=== PATIENT | male | born 1960 | race Caucasian/White ===

== ENCOUNTER 2016-10-23 02:30 | Inpatient (IN) | payer OTHER ==
[~2016-10-23] VITALS: Ht 172.7 cm; Wt 115.4 kg
[~2016-10-23 02:30] MED LIST: ALBUTEROL SULF8.5 GM IH; CARTIA XT120 MG PO; CEFDINIR300 MG PO; DAILY VALUE1 EACH PO; DELTASONE20 M1 PO; DILAUDID8 MG PO; DOCUSATE SODIU100 MG PO; DOK PLUS TABLE1 EACH PO; ENSURE LIQUID237 ML PO; FAMOTIDINE20 MG PO; FOLIC ACID1 MG PO; FUROSEMIDE40 MG PO; HEPARIN SO5000 UNITS SC; LACTULOSE10 GM/151 PO; LEVAQUIN750 MG PO; LIBRIUM25 MG PO; MAGNESIUM CITR296 M1 PO; METHADONE10 MG PO; MICROZIDE12.5 M1 PO; NEURONTIN600 MG PO; NEURONTIN800 MG PO; NICOTINE PATCH1 EAC2 TD; PREDNISONE20 MG PO; PREDNISONE50 MG PO; PROVENTIL,VENTOL2 MG PO; RANITIDINE HCL150 M1 PO; SENNA-TIME S T1 EACH PO; SYMBICORT60 INHALAT IH; THEOCHRON200 MG PO; THERAGRAN1 TABLET PO; THIAMINE HCL100 MG PO; TYLENOL REGULA325 MG PO; VITAMIN B-1100 MG PO; WARFARIN SODIUM3 MG PO; WELLBUTRIN XL150 MG PO; XARELTO20 MG PO; ZANTAC150 MG PO; ZOFRAN ODT4 MG PO; ZOFRAN4 MG PO
[2016-10-23 03:26] LABS: EOSINOPHIL (%) 0.2 % (0-5); HEMATOCRIT 43.7 % (38.0-50.0); IMMATURE GRANULOCYTE (%) 0.5 % (0.0-0.7); IMMATURE GRANULOCYTE COUNT 0.7 K/uL; LYMPHOCYTE COUNT 0.6 K/uL (1.0-2.8); MCH 31.2 PG (29.0-34.0); MCHC 33.4 G/DL (30.0-36.0); MCV 93.4 FL (86-99); MEAN PLAT.VOLUME 8.1 uM^3 (9.0-12.4); MONOCYTE (%) 7.1 % (3-12); NEUTROPHIL (%) 87.6 % (45-76); NEUTROPHIL COUNT 12.7 K/uL (1.8-6.4); PLATELET COUNT 173 K/uL (156-360); RBC DIS.WIDTH-CV 15.6 % (11.8-14.6); RBC DIS.WIDTH-SD 51.8 % (39-53); RED BLOOD COUNT 4.68 M/uL (4.00-5.50); WHITE BLOOD COUNT 14.5 K/uL (4.1-10.2)
[2016-10-23 03:42] LABS: CHLORIDE 92 mEq/L (99-109)
[2016-10-23 03:43] LABS: POTASSIUM 4.2 mEq/L (3.7-5.4); SODIUM 126 mEq/L (136-147)
[2016-10-23 03:45] LABS: GLUCOSE 96 mg/dL (70-99)
[2016-10-23 03:46] LABS: ANION GAP 13 MEQ/L (2-14)
[2016-10-23 03:47] LABS: TOTAL BILIRUBIN 1.1 mg/dL (0.0-1.0)
[2016-10-23 03:48] LABS: ALKALINE PHOSPHATASE 121 IU/L (3-129); GFR ESTIMATE (CALCULATED) > 59 mL/min/
[2016-10-23 03:50] LABS: UREA NITROGEN (BUN) 4 mg/dL (9-23)
[2016-10-23 03:55] LABS: INFLUENZA A VIRAL ANTIGEN NEGATIVE; INFLUENZA B VIRAL ANTIGEN NEGATIVE
[2016-10-23 04:13] LABS: ADD MIUA? YES; BILIRUBIN NEGATIVE; BLOOD SMALL; COLOR YELLOW ((YELLOW)); GLUCOSE (STRIP) NEGATIVE; KETONES NEGATIVE; LEUKOCYTES NEGATIVE; NITRITE NEGATIVE; PROTEIN (STRIP) NEGATIVE; UROBILINOGEN 0.2 MG/DL (0.2-1.0)
[2016-10-23 04:32] LABS: SPECIFIC GRAVITY 1.005 (1.000-1.030)
[2016-10-23 04:37] LABS: BACTERIA NONE SEEN; CASTS NONE SEEN /LPF; CRYSTALS NONE SEEN; EPITHELIAL CELLS RARE; MUCUS NONE SEEN; RED BLOOD CELLS NONE SEEN /HPF (0-5); UCUL ADDED? NO; WHITE BLOOD CELLS RARE /HPF (0-5)
[2016-10-23 07:04] VITALS: BP 126/76
[2016-10-23 07:34] VITALS: BP 125/112
[2016-10-23 08:53] VITALS: BP 118/70
[2016-10-23 16:19] VITALS: BP 130/76
[2016-10-23 22:16] VITALS: BP 115/57
[2016-10-24 07:01] LABS: EOSINOPHIL (%) 2.1 % (0-5); EOSINOPHIL COUNT 0.2 K/uL (0-0.3); HEMATOCRIT 40.6 % (38.0-50.0); IMMATURE GRANULOCYTE (%) 0.5 % (0.0-0.7); LYMPHOCYTE COUNT 0.9 K/uL (1.0-2.8); MCH 31.5 PG (29.0-34.0); MCHC 32.3 G/DL (30.0-36.0); MONOCYTE (%) 10.6 % (3-12); MONOCYTE COUNT 0.8 K/uL (0-0.8); NEUTROPHIL (%) 74.9 % (45-76); NEUTROPHIL COUNT 5.7 K/uL (1.8-6.4); RBC DIS.WIDTH-CV 16.3 % (11.8-14.6); RBC DIS.WIDTH-SD 57.8 % (39-53); RED BLOOD COUNT 4.16 M/uL (4.00-5.50)
[2016-10-24 07:03] LABS: ANION GAP 7 MEQ/L (2-14); CHLORIDE 97 MEQ/L (99-109); GFR ESTIMATE (CALCULATED) > 59 mL/min/; GLUCOSE 96 mg/dL (70-99); POTASSIUM 4.1 MEQ/L (3.7-5.4); SAMPLE HEMOLYSIS CHECK 0; SAMPLE ICTERIC CHECK 0; SAMPLE LIPEMIA CHECK 0; SODIUM 131 MEQ/L (136-147); UREA NITROGEN (BUN) 8 mg/dL (9-23)
[2016-10-24 07:04] LABS: MCV 97.6 FL (86-99); WHITE BLOOD COUNT 7.6 K/uL (4.1-10.2)
[2016-10-24 07:51] LABS: MEAN PLAT.VOLUME 9.5 uM^3 (9.0-12.4); PLATELET COUNT 137 K/uL (156-360)
[2016-10-24 08:05] VITALS: BP 137/83
[2016-10-24 16:25] VITALS: BP 122/83
[2016-10-24 22:51] VITALS: BP 133/81
[2016-10-25 07:52] VITALS: BP 129/68
[2016-10-25 13:55] LABS: HEMATOCRIT 40.5 % (38.0-50.0); MCH 31.6 PG (29.0-34.0); MCHC 32.3 G/DL (30.0-36.0); MCV 97.6 FL (86-99); MEAN PLAT.VOLUME 9.3 uM^3 (9.0-12.4); PLATELET COUNT 162 K/uL (156-360); RBC DIS.WIDTH-CV 16.2 % (11.8-14.6); RBC DIS.WIDTH-SD 57.7 % (39-53); RED BLOOD COUNT 4.15 M/uL (4.00-5.50); WHITE BLOOD COUNT 5.7 K/uL (4.1-10.2)
[2016-10-25 14:14] LABS: ANION GAP 8 MEQ/L (2-14); CHLORIDE 95 MEQ/L (99-109); GFR ESTIMATE (CALCULATED) > 59 mL/min/; GLUCOSE 118 mg/dL (70-99); POTASSIUM 4.1 MEQ/L (3.7-5.4); SAMPLE HEMOLYSIS CHECK 0; SAMPLE ICTERIC CHECK 0; SAMPLE LIPEMIA CHECK 0; SODIUM 131 MEQ/L (136-147); UREA NITROGEN (BUN) 10 mg/dL (9-23)
[2016-10-25 14:53] LABS: EOSINOPHIL (%) 3.5 % (0-5); EOSINOPHIL COUNT 0.2 K/uL (0-0.3); IMMATURE GRANULOCYTE (%) 0.9 % (0.0-0.7); IMMATURE GRANULOCYTE COUNT 0.1 K/uL; MONOCYTE (%) 16.6 % (3-12); MONOCYTE COUNT 0.9 K/uL (0-0.8); NEUTROPHIL (%) 61.2 % (45-76); NEUTROPHIL COUNT 3.5 K/uL (1.8-6.4)
[2016-10-25 15:51] VITALS: BP 132/85
[2016-10-25 16:00] LABS: HEMATOLOGY COMMENT 1 SMEAR COMPATIBLE; USER ID SS
[2016-10-25 22:19] VITALS: BP 132/81
[2016-10-26 06:52] LABS: HEMATOCRIT 40.7 % (38.0-50.0); MCH 31.5 PG (29.0-34.0); MCHC 32.2 G/DL (30.0-36.0); MCV 97.8 FL (86-99); MEAN PLAT.VOLUME 9.2 uM^3 (9.0-12.4); PLATELET COUNT 164 K/uL (156-360); RBC DIS.WIDTH-CV 15.8 % (11.8-14.6); RED BLOOD COUNT 4.16 M/uL (4.00-5.50); WHITE BLOOD COUNT 6.1 K/uL (4.1-10.2)
[2016-10-26 07:15] LABS: ANION GAP 6 MEQ/L (2-14); CHLORIDE 93 MEQ/L (99-109); CREATINE KINASE 48 IU/L (1-294); GFR ESTIMATE (CALCULATED) > 59 mL/min/; GLUCOSE 87 mg/dL (70-99); POTASSIUM 4.1 MEQ/L (3.7-5.4); SAMPLE HEMOLYSIS CHECK 0; SAMPLE ICTERIC CHECK 0; SAMPLE LIPEMIA CHECK 0; SODIUM 130 MEQ/L (136-147); UREA NITROGEN (BUN) 11 mg/dL (9-23)
[2016-10-26 07:17] LABS: BASOPHIL COUNT 0.1 K/uL (0-0.1); EOSINOPHIL (%) 4.7 % (0-5); EOSINOPHIL COUNT 0.3 K/uL (0-0.3); IMMATURE GRANULOCYTE (%) 1.1 % (0.0-0.7); IMMATURE GRANULOCYTE COUNT 0.1 K/uL; LYMPHOCYTE COUNT 1.1 K/uL (1.0-2.8); MONOCYTE (%) 16.9 % (3-12); NEUTROPHIL (%) 57.8 % (45-76); NEUTROPHIL COUNT 3.5 K/uL (1.8-6.4)
[2016-10-26 07:19] VITALS: BP 123/73
[2016-10-26 12:11] VITALS: BP 136/77
[2016-10-26 15:12] VITALS: BP 149/77
[2016-10-26 22:56] VITALS: BP 143/83
[2016-10-27 06:50] LABS: MCH 31.5 PG (29.0-34.0); MCV 98.5 FL (86-99); MEAN PLAT.VOLUME 9.2 uM^3 (9.0-12.4); PLATELET COUNT 155 K/uL (156-360); RBC DIS.WIDTH-CV 15.9 % (11.8-14.6); RBC DIS.WIDTH-SD 57.3 % (39-53); RED BLOOD COUNT 4.06 M/uL (4.00-5.50)
[2016-10-27 07:20] LABS: ANION GAP 6 MEQ/L (2-14); CHLORIDE 96 MEQ/L (99-109); GFR ESTIMATE (CALCULATED) > 59 mL/min/; GLUCOSE 81 mg/dL (70-99); POTASSIUM 4.4 MEQ/L (3.7-5.4); SAMPLE HEMOLYSIS CHECK 0; SAMPLE ICTERIC CHECK 0; SAMPLE LIPEMIA CHECK 0; SODIUM 133 MEQ/L (136-147); UREA NITROGEN (BUN) 11 mg/dL (9-23)
[2016-10-27 08:13] VITALS: BP 134/74
[2016-10-27] MEDS ORDERED: FOLIC ACID1 MG PO (09:02)
[2016-10-27] MEDS ORDERED: Thiamine,Vitamin B1 PO (09:02)
[2016-10-27] MEDS ORDERED: THERAGRAN1 TABLET PO (09:03)
[2016-10-27] MEDS ORDERED: FUROSEMIDE20 MG PO (09:05)
[2016-10-27] MEDS ORDERED: PREDNISONE10 MG PO (09:05)
[2016-10-27] MEDS ORDERED: XARELTO20 MG PO (09:43)
== END 2016-10-27 13:08 | disposition home health service (06) | DRG 871 ==
LOC: EME 02:30 → 5EAST 07:16 → EDOF 07:16 → 5EAST 08:08
PROVIDERS: Emergency Medicine; Internal Medicine; Physician Assistant; Physician Assistant Medical
DX: A41.9 Sepsis, unspecified organism (principal); J15.9 Unspecified bacterial pneumonia; J96.01 Acute respiratory failure with hypoxia; I82.432 Acute embolism and thrombosis of left popliteal vein; E87.1 Hypo-osmolality and hyponatremia; I83.218 Varicose veins of right lower extremity with both ulcer of other part of lower extremity and inflammation; L97.819 Non-pressure chronic ulcer of other part of right lower leg with unspecified severity; I83.228 Varicose veins of left lower extremity with both ulcer of other part of lower extremity and inflammation; L97.829 Non-pressure chronic ulcer of other part of left lower leg with unspecified severity; L97.429 Non-pressure chronic ulcer of left heel and midfoot with unspecified severity; G47.33 Obstructive sleep apnea (adult) (pediatric); Z99.81 Dependence on supplemental oxygen; F10.239 Alcohol dependence with withdrawal, unspecified; I89.0 Lymphedema, not elsewhere classified; G62.9 Polyneuropathy, unspecified; I10 Essential (primary) hypertension; K21.9 Gastro-esophageal reflux disease without esophagitis; K43.9 Ventral hernia without obstruction or gangrene; J44.9 Chronic obstructive pulmonary disease, unspecified; K72.90 Hepatic failure, unspecified without coma; K74.60 Unspecified cirrhosis of liver; F32.9 Major depressive disorder, single episode, unspecified; F41.9 Anxiety disorder, unspecified; E66.01 Morbid (severe) obesity due to excess calories; Z68.38 Body mass index [BMI] 38.0-38.9, adult; Z86.711 Personal history of pulmonary embolism; Z79.01 Long term (current) use of anticoagulants; Z91.19 Patient's noncompliance with other medical treatment and regimen; Z87.891 Personal history of nicotine dependence
CPT/HCPCS: 71010; 71275; 80048; 80053; 81003; 82550; 83605; 85025; 85027; 87040; 87070; 87081; 87205; 87502; 93971; 94640 76; 94660; 94760; 94799; 99202; 99281; 99285; J0456; J0696; J7040; J7050; J7120

== ENCOUNTER 2017-05-08 15:55 | Inpatient (IN) | payer OTHER ==
[~2017-05-08] VITALS: Ht 172.7 cm; Wt 85.7 kg
[~2017-05-08 15:55] MED LIST changes: +FUROSEMIDE20 MG PO; +PREDNISONE10 MG PO; +Thiamine,Vitamin B1 PO
[2017-05-08 17:30] LABS: HEMATOCRIT 40.4 % (38.0-50.0); MCH 29.5 PG (29.0-34.0); MCHC 32.2 G/DL (30.0-36.0); MCV 91.8 FL (86-99); MEAN PLAT.VOLUME 10.6 uM^3 (9.0-12.4); NRBC (%) 0.3 /100 WBC (0-0); PLATELET COUNT 118 K/uL (156-360); RBC DIS.WIDTH-CV 14.5 % (11.8-14.6); WHITE BLOOD COUNT 6.3 K/uL (4.1-10.2)
[2017-05-08 17:45] LABS: CHLORIDE 88 mEq/L (99-109); POTASSIUM 4.8 mEq/L (3.7-5.4); SODIUM 122 mEq/L (136-147)
[2017-05-08 17:46] LABS: GLUCOSE 85 mg/dL (70-99)
[2017-05-08 17:48] LABS: ANION GAP 8 MEQ/L (2-14)
[2017-05-08 17:50] LABS: GFR ESTIMATE (CALCULATED) > 59 mL/min/
[2017-05-08 17:51] LABS: UREA NITROGEN (BUN) 2 mg/dL (9-23)
[2017-05-08 21:51] LABS: BASE EXCESS 1.2 mEq/L (-3 to +3); CARBOXY HGB 2.7 % (0-5); METHEMOGLOBIN 0.8 % (0-1.5); PCO2 59 mm Hg (35-45); PO2 110 mm Hg (80-100)
[2017-05-08 21:54] LABS: SITE LR
[2017-05-08 21:55] LABS: COMMENTS - BLOOD GASES A+C+; DEVICE NRBM; O2 FLOW 15 L/MIN
[2017-05-08 23:01] LABS: TROP-I INTERPRETATION NEGATIVE; TROPONIN-I 0.14 ng/mL (0.0-0.30)
[2017-05-08 23:03] LABS: BASE EXCESS 1.9 mEq/L (-3 to +3); BICARBONATE 28.2 mEq/L (22-26); CARBOXY HGB 2.9 % (0-5); COMMENTS - BLOOD GASES C+; METHEMOGLOBIN 1.2 % (0-1.5); O2 FLOW 5 L/MIN; PCO2 50 mm Hg (35-45); PO2 62 mm Hg (80-100); SITE RR; pH 7.36 (7.35-7.45)
[2017-05-08 23:04] LABS: DEVICE BIPAP 13/8
[2017-05-08] MEDS ORDERED: VITAMIN B-150 MG PO (23:42)
[2017-05-08] MEDS ORDERED: MULTIVITAMIN1 EAC2 PO (23:43)
[2017-05-08] MEDS ORDERED: FOLIC ACID0.4 MG PO (23:43)
[2017-05-09] VITALS (10 sets, daily range): BP systolic 115–198; BP diastolic 49–150
[2017-05-09 00:05] LABS: CHLORIDE 88 mEq/L (99-109); POTASSIUM 4.7 mEq/L (3.7-5.4); SODIUM 125 mEq/L (136-147)
[2017-05-09 00:08] LABS: GLUCOSE 111 mg/dL (70-99)
[2017-05-09 00:09] LABS: ANION GAP 12 MEQ/L (2-14)
[2017-05-09 00:10] LABS: TOTAL BILIRUBIN 1.2 mg/dL (0.0-1.0)
[2017-05-09 00:11] LABS: ALKALINE PHOSPHATASE 111 IU/L (3-129); GFR ESTIMATE (CALCULATED) > 59 mL/min/
[2017-05-09 00:12] LABS: UREA NITROGEN (BUN) 3 mg/dL (9-23)
[2017-05-09 00:35] LABS: MAGNESIUM 1.6 mg/dL (1.3-2.7)
[2017-05-09 02:40] LABS: METH RESISTANT S AUREUS PCR POSITIVE (NEGATIVE)
[2017-05-09 02:54] LABS: CHLORIDE 89 mEq/L (99-109); POTASSIUM 4.5 mEq/L (3.7-5.4); SODIUM 126 mEq/L (136-147)
[2017-05-09 02:56] LABS: GLUCOSE 117 mg/dL (70-99)
[2017-05-09 02:57] LABS: ANION GAP 11 MEQ/L (2-14)
[2017-05-09 03:00] LABS: GFR ESTIMATE (CALCULATED) > 59 mL/min/; UREA NITROGEN (BUN) 3 mg/dL (9-23)
[2017-05-09 03:04] LABS: PROBE CHECK PASS
[2017-05-09 05:29] LABS: EOSINOPHIL (%) 0 % (0-5); HEMATOCRIT 40.9 % (38.0-50.0); IMMATURE GRANULOCYTE (%) 0.3 % (0.0-0.7); INSTRUMENT ABS NEUTROPHIL CT 6.5 K/uL; LYMPHOCYTE COUNT 0.3 K/uL (1.0-2.8); MCHC 31.3 G/DL (30.0-36.0); MCV 92.7 FL (86-99); MEAN PLAT.VOLUME 10.5 uM^3 (9.0-12.4); MONOCYTE (%) 5.6 % (3-12); MONOCYTE COUNT 0.4 K/uL (0-0.8); NEUTROPHIL (%) 90.6 % (45-76); NEUTROPHIL COUNT 6.5 K/uL (1.8-6.4); PLATELET COUNT 115 K/uL (156-360); RBC DIS.WIDTH-CV 14.5 % (11.8-14.6); RBC DIS.WIDTH-SD 49.7 % (39-53); RED BLOOD COUNT 4.41 M/uL (4.00-5.50); WHITE BLOOD COUNT 7.2 K/uL (4.1-10.2)
[2017-05-09 05:52] LABS: ANION GAP 7 MEQ/L (2-14); CHLORIDE 88 MEQ/L (99-109); GFR ESTIMATE (CALCULATED) > 59 mL/min/; GLUCOSE 132 mg/dL (70-99); POTASSIUM 4.2 MEQ/L (3.7-5.4); SAMPLE HEMOLYSIS CHECK 0; SAMPLE ICTERIC CHECK 0; SAMPLE LIPEMIA CHECK 0; SODIUM 127 MEQ/L (136-147); UREA NITROGEN (BUN) 4 mg/dL (9-23)
[2017-05-09 10:33] LABS: HEMOGLOBIN 14.1 (12.5-16.6); PCO2 55 mm Hg (35-45); PO2 50 mm Hg (80-100); pH 7.37 (7.35-7.45)
[2017-05-09 10:34] LABS: BASE EXCESS 4.9 mEq/L (-3 to +3); BICARBONATE 31.8 mEq/L (22-26); CARBOXY HGB 2.8 % (0-5); COMMENTS - BLOOD GASES A+C+; DEVICE BIPAP; METHEMOGLOBIN 1.5 % (0-1.5); O2 FLOW 15 L/MIN; O2 SATURATION (CALCULATED) 83.9 % (95-99); SITE RR; TOTAL RESP RATE 24 resp/min
[2017-05-09 10:35] LABS: CONTINUOUS POS AIRWAY PRESSURE 8 cm H2O; PRES. SUPPORT 13 CM/H2O
[2017-05-09 19:27] LABS: ADD MIUA? YES; BILIRUBIN NEGATIVE; BLOOD SMALL; COLOR AMBER ((YELLOW)); GLUCOSE (STRIP) NEGATIVE; KETONES NEGATIVE; LEUKOCYTES NEGATIVE; NITRITE NEGATIVE; PROTEIN (STRIP) 30; SPECIFIC GRAVITY 1.031 (1.000-1.030); UROBILINOGEN 0.2 MG/DL (0.2-1.0)
[2017-05-09 19:55] LABS: BACTERIA RARE /HPF; EPITHELIAL CELLS RARE /HPF; HYALINE CASTS 0-5 /LPF; MUCUS TRACE /LPF; RED BLOOD CELLS 0-5 /HPF (0-5); UCUL ADDED? NO; WHITE BLOOD CELLS 0-5 /HPF (0-5)
[2017-05-10] VITALS (17 sets, daily range): BP systolic 86–120; BP diastolic 56–85
[2017-05-10 07:14] LABS: HEMATOCRIT 39.2 % (38.0-50.0); MCH 29.3 PG (29.0-34.0); MCHC 31.9 G/DL (30.0-36.0); MCV 91.8 FL (86-99); PLATELET COUNT 140 K/uL (156-360); RBC DIS.WIDTH-CV 14.9 % (11.8-14.6); RBC DIS.WIDTH-SD 50.1 % (39-53); RED BLOOD COUNT 4.27 M/uL (4.00-5.50); WHITE BLOOD COUNT 7.8 K/uL (4.1-10.2)
[2017-05-10 07:40] LABS: ANION GAP 7 MEQ/L (2-14); CHLORIDE 91 MEQ/L (99-109); GFR ESTIMATE (CALCULATED) > 59 mL/min/; GLUCOSE 129 mg/dL (70-99); MAGNESIUM 1.7 mg/dl (1.3-2.7); POTASSIUM 4.1 MEQ/L (3.7-5.4); SAMPLE HEMOLYSIS CHECK 0; SAMPLE ICTERIC CHECK 0; SAMPLE LIPEMIA CHECK 0; SODIUM 129 MEQ/L (136-147); UREA NITROGEN (BUN) 8 mg/dL (9-23)
[2017-05-10 07:42] LABS: INTERNAL CONTROL VALID? YES
[2017-05-10 12:47] LABS: DIRECT BILIRUBIN 0.5 mg/dL (0.0-0.3)
[2017-05-10 12:52] LABS: ALKALINE PHOSPHATASE 76 IU/L (3-129); TRIGLYCERIDES 129 MG/DL (Normal: <150)
[2017-05-10 18:23] LABS: POINT-OF-CARE METER ID UU13113731
[2017-05-10 21:46] LABS: POINT-OF-CARE METER ID UU13113731
[2017-05-11] VITALS (15 sets, daily range): BP systolic 109–125; BP diastolic 72–94
[2017-05-11 05:36] LABS: HEMATOCRIT 39.5 % (38.0-50.0); MCHC 31.9 G/DL (30.0-36.0); MCV 90.8 FL (86-99); MEAN PLAT.VOLUME 10.7 uM^3 (9.0-12.4); PLATELET COUNT 123 K/uL (156-360); RBC DIS.WIDTH-CV 15.4 % (11.8-14.6); RBC DIS.WIDTH-SD 50.2 % (39-53); RED BLOOD COUNT 4.35 M/uL (4.00-5.50); WHITE BLOOD COUNT 5.1 K/uL (4.1-10.2)
[2017-05-11 06:07] LABS: ANION GAP 6 MEQ/L (2-14); CHLORIDE 93 MEQ/L (99-109); GFR ESTIMATE (CALCULATED) > 59 mL/min/; GLUCOSE 113 mg/dL (70-99); POTASSIUM 4.1 MEQ/L (3.7-5.4); SAMPLE HEMOLYSIS CHECK 0; SAMPLE ICTERIC CHECK 0; SAMPLE LIPEMIA CHECK 0; SODIUM 130 MEQ/L (136-147); UREA NITROGEN (BUN) 10 mg/dL (9-23)
[2017-05-11 06:13] LABS: MAGNESIUM 2.2 mg/dl (1.3-2.7)
[2017-05-11 12:28] LABS: BASE EXCESS 7.6 mEq/L (-3 to +3); CARBOXY HGB 2.3 % (0-5); METHEMOGLOBIN 1.6 % (0-1.5); PCO2 43 mm Hg (35-45); PO2 81 mm Hg (80-100); pH 7.48 (7.35-7.45)
[2017-05-11 12:29] LABS: COMMENTS - BLOOD GASES NAC+; DEVICE 840; FI02 60 %; SITE RR
[2017-05-11 12:30] LABS: INSPIRATION TIME 0.8 seconds; MECHANICAL RATE 24 resp/min; MODE AC/VC+; PEEP 14 CM/H20; TIDAL VOLUME 500 ML; TOTAL RESP RATE 24 resp/min
[2017-05-11 12:52] LABS: POINT-OF-CARE METER ID UU14174217
[2017-05-12] VITALS (20 sets, daily range): BP systolic 106–139; BP diastolic 71–91
[2017-05-12 00:26] LABS: POINT-OF-CARE METER ID UU14174217
[2017-05-12 05:31] LABS: POINT-OF-CARE METER ID UU14162636
[2017-05-12 06:04] LABS: HEMATOCRIT 40.4 % (38.0-50.0); MCH 29.1 PG (29.0-34.0); MCHC 31.9 G/DL (30.0-36.0); MCV 91.2 FL (86-99); MEAN PLAT.VOLUME 10.6 uM^3 (9.0-12.4); PLATELET COUNT 139 K/uL (156-360); RBC DIS.WIDTH-CV 15.8 % (11.8-14.6); RBC DIS.WIDTH-SD 52.2 % (39-53); RED BLOOD COUNT 4.43 M/uL (4.00-5.50); WHITE BLOOD COUNT 5.1 K/uL (4.1-10.2)
[2017-05-12 06:32] LABS: ANION GAP 8 MEQ/L (2-14); CHLORIDE 96 MEQ/L (99-109); GFR ESTIMATE (CALCULATED) > 59 mL/min/; GLUCOSE 122 mg/dL (70-99); MAGNESIUM 2.3 mg/dl (1.3-2.7); POTASSIUM 4.1 MEQ/L (3.7-5.4); SAMPLE HEMOLYSIS CHECK 0; SAMPLE ICTERIC CHECK 0; SAMPLE LIPEMIA CHECK 0; SODIUM 135 MEQ/L (136-147); UREA NITROGEN (BUN) 14 mg/dL (9-23)
[2017-05-12 11:08] LABS: POINT-OF-CARE METER ID UU14162636
[2017-05-12 16:17] LABS: BASE EXCESS 7.4 mEq/L (-3 to +3); CARBOXY HGB 2.2 % (0-5); COMMENTS - BLOOD GASES +C; DEVICE PB840; FI02 100 %; MECHANICAL RATE 24 resp/min; METHEMOGLOBIN 1.6 % (0-1.5); MODE ACVC+; PCO2 44 mm Hg (35-45); PO2 95 mm Hg (80-100); SITE RR +A; TIDAL VOLUME 500 ML; TOTAL RESP RATE 25 resp/min; pH 7.47 (7.35-7.45)
[2017-05-12 16:18] LABS: INSPIRATION TIME 0.8 seconds; PEEP 14 CM/H20
[2017-05-12 17:50] LABS: POINT-OF-CARE METER ID UU14162636
[2017-05-13] VITALS (22 sets, daily range): BP systolic 118–140; BP diastolic 72–95
[2017-05-13 00:08] LABS: POINT-OF-CARE METER ID UU14162636
[2017-05-13 05:47] LABS: HEMATOCRIT 39.6 % (38.0-50.0); MCHC 33.1 G/DL (30.0-36.0); MCV 90.8 FL (86-99); MEAN PLAT.VOLUME 10.4 uM^3 (9.0-12.4); PLATELET COUNT 140 K/uL (156-360); RBC DIS.WIDTH-CV 15.8 % (11.8-14.6); RBC DIS.WIDTH-SD 51.5 % (39-53); RED BLOOD COUNT 4.36 M/uL (4.00-5.50); WHITE BLOOD COUNT 4.7 K/uL (4.1-10.2)
[2017-05-13 05:53] LABS: POINT-OF-CARE METER ID UU13113731
[2017-05-13 06:37] LABS: ANION GAP 5 MEQ/L (2-14); CHLORIDE 95 MEQ/L (99-109); GFR ESTIMATE (CALCULATED) > 59 mL/min/; GLUCOSE 136 mg/dL (70-99); MAGNESIUM 2.2 mg/dl (1.3-2.7); POTASSIUM 4.5 MEQ/L (3.7-5.4); SAMPLE HEMOLYSIS CHECK 3; SAMPLE ICTERIC CHECK 0; SAMPLE LIPEMIA CHECK 0; SODIUM 133 MEQ/L (136-147); UREA NITROGEN (BUN) 16 mg/dL (9-23)
[2017-05-13 12:07] LABS: POINT-OF-CARE METER ID UU14208751
[2017-05-13 18:33] LABS: POINT-OF-CARE METER ID UU14174217
[2017-05-14] VITALS (24 sets, daily range): BP systolic 115–147; BP diastolic 65–93
[2017-05-14 00:40] LABS: POINT-OF-CARE METER ID UU14208751
[2017-05-14 05:22] LABS: POINT-OF-CARE METER ID UU13113748
[2017-05-14 05:38] LABS: EOSINOPHIL (%) 0 % (0-5); HEMATOCRIT 40.5 % (38.0-50.0); IMMATURE GRANULOCYTE (%) 0.7 % (0.0-0.7); INSTRUMENT ABS NEUTROPHIL CT 3.8 K/uL; LYMPHOCYTE COUNT 0.7 K/uL (1.0-2.8); MCH 30.5 PG (29.0-34.0); MCHC 33.1 G/DL (30.0-36.0); MCV 92.3 FL (86-99); MEAN PLAT.VOLUME 10.4 uM^3 (9.0-12.4); MONOCYTE (%) 19.4 % (3-12); MONOCYTE COUNT 1.1 K/uL (0-0.8); NEUTROPHIL (%) 67.5 % (45-76); NEUTROPHIL COUNT 3.8 K/uL (1.8-6.4); PLATELET COUNT 142 K/uL (156-360); RBC DIS.WIDTH-CV 15.9 % (11.8-14.6); RBC DIS.WIDTH-SD 53.4 % (39-53); RED BLOOD COUNT 4.39 M/uL (4.00-5.50); WHITE BLOOD COUNT 5.6 K/uL (4.1-10.2)
[2017-05-14 06:39] LABS: ANION GAP 2 MEQ/L (2-14); CHLORIDE 99 MEQ/L (99-109); GFR ESTIMATE (CALCULATED) > 59 mL/min/; GLUCOSE 122 mg/dL (70-99); MAGNESIUM 2.1 mg/dl (1.3-2.7); POTASSIUM 3.6 MEQ/L (3.7-5.4); SAMPLE HEMOLYSIS CHECK 0; SAMPLE ICTERIC CHECK 0; SAMPLE LIPEMIA CHECK 0; SODIUM 138 MEQ/L (136-147); UREA NITROGEN (BUN) 16 mg/dL (9-23)
[2017-05-14 11:57] LABS: POINT-OF-CARE METER ID UU13113748
[2017-05-14 17:45] LABS: POINT-OF-CARE METER ID UU13113731
[2017-05-15] VITALS (24 sets, daily range): BP systolic 118–159; BP diastolic 72–91
[2017-05-15 05:51] LABS: POINT-OF-CARE METER ID UU14162636; POINT-OF-CARE USER ID RADDRS44
[2017-05-15 06:06] LABS: HEMATOCRIT 41.9 % (38.0-50.0); MCH 29.3 PG (29.0-34.0); MCHC 32.2 G/DL (30.0-36.0); MCV 90.9 FL (86-99); MEAN PLAT.VOLUME 10.1 uM^3 (9.0-12.4); PLATELET COUNT 164 K/uL (156-360); RBC DIS.WIDTH-CV 15.5 % (11.8-14.6); RBC DIS.WIDTH-SD 51.4 % (39-53); RED BLOOD COUNT 4.61 M/uL (4.00-5.50); WHITE BLOOD COUNT 6.7 K/uL (4.1-10.2)
[2017-05-15 07:00] LABS: ANION GAP 8 MEQ/L (2-14); CHLORIDE 97 MEQ/L (99-109); GFR ESTIMATE (CALCULATED) > 59 mL/min/; GLUCOSE 120 mg/dL (70-99); MAGNESIUM 1.9 mg/dl (1.3-2.7); POTASSIUM 3.6 MEQ/L (3.7-5.4); SAMPLE HEMOLYSIS CHECK 0; SAMPLE ICTERIC CHECK 0; SAMPLE LIPEMIA CHECK 0; SODIUM 136 MEQ/L (136-147); UREA NITROGEN (BUN) 16 mg/dL (9-23)
[2017-05-15 12:30] LABS: POINT-OF-CARE METER ID UU14162636
[2017-05-15 14:08] LABS: BASE EXCESS 8.2 mEq/L (-3 to +3); BICARBONATE 31.9 mEq/L (22-26); CARBOXY HGB 2.6 % (0-5); COMMENTS - BLOOD GASES A+C+; METHEMOGLOBIN 1.6 % (0-1.5); PCO2 40 mm Hg (35-45); PO2 68 mm Hg (80-100); SITE RR; pH 7.51 (7.35-7.45)
[2017-05-15 14:09] LABS: DEVICE PB 840 VENT; FI02 100 %; MECHANICAL RATE 24 resp/min; MODE ACVC+; PEEP 9 CM/H20; TIDAL VOLUME 500 ML; TOTAL RESP RATE 27 resp/min
[2017-05-16] VITALS (23 sets, daily range): BP systolic 76–159; BP diastolic 58–97
[2017-05-16 06:15] LABS: HEMATOCRIT 44.1 % (38.0-50.0); MCH 30.2 PG (29.0-34.0); MCHC 32.9 G/DL (30.0-36.0); MCV 91.9 FL (86-99); MEAN PLAT.VOLUME 10.5 uM^3 (9.0-12.4); PLATELET COUNT 151 K/uL (156-360); RBC DIS.WIDTH-CV 15.4 % (11.8-14.6); RBC DIS.WIDTH-SD 51.3 % (39-53); WHITE BLOOD COUNT 6.6 K/uL (4.1-10.2)
[2017-05-16 06:32] LABS: ANION GAP 10 MEQ/L (2-14); CHLORIDE 97 MEQ/L (99-109); GFR ESTIMATE (CALCULATED) > 59 mL/min/; GLUCOSE 105 mg/dL (70-99); POTASSIUM 3.7 MEQ/L (3.7-5.4); SAMPLE HEMOLYSIS CHECK 0; SAMPLE ICTERIC CHECK 0; SAMPLE LIPEMIA CHECK 0; SODIUM 138 MEQ/L (136-147); UREA NITROGEN (BUN) 19 mg/dL (9-23)
[2017-05-16 10:02] LABS: BASE EXCESS 6.3 mEq/L (-3 to +3); BICARBONATE 30.5 mEq/L (22-26); CARBOXY HGB 2.2 % (0-5); METHEMOGLOBIN 1.5 % (0-1.5); PCO2 41 mm Hg (35-45); PO2 53 mm Hg (80-100); SITE RR; pH 7.48 (7.35-7.45)
[2017-05-16 10:03] LABS: COMMENTS - BLOOD GASES A+C+; DEVICE 840 VENTIALTOR; FI02 100 %; MECHANICAL RATE 24 resp/min; MODE AC+; PEEP 15 CM/H20; TIDAL VOLUME 500 ML; TOTAL RESP RATE 29 resp/min
[2017-05-16 11:40] LABS: BASE EXCESS 5.9 mEq/L (-3 to +3); BICARBONATE 28.2 mEq/L (22-26); CARBOXY HGB 2.4 % (0-5); DEVICE 840 VENTIALTOR; FI02 100 %; MECHANICAL RATE 26 resp/min; METHEMOGLOBIN 1.5 % (0-1.5); MODE BILEVEL; PCO2 33 mm Hg (35-45); PO2 61 mm Hg (80-100); SITE A LINE; TOTAL RESP RATE 26 resp/min; pH 7.54 (7.35-7.45)
[2017-05-16 11:41] LABS: CONTINUOUS POS AIRWAY PRESSURE 0 cm H2O
[2017-05-16 11:50] LABS: COMMENTS - BLOOD GASES C+
[2017-05-16 11:51] LABS: PEEP 34 CM/H20
[2017-05-16 13:31] LABS: BASE EXCESS 3.8 mEq/L (-3 to +3); BICARBONATE 26.1 mEq/L (22-26); CARBOXY HGB 2.1 % (0-5); METHEMOGLOBIN 1.3 % (0-1.5); PCO2 32 mm Hg (35-45); pH 7.52 (7.35-7.45)
[2017-05-16 13:32] LABS: DEVICE 980; FI02 100 %; MECHANICAL RATE 26 resp/min; MODE BILEVEL; PO2 208 mm Hg (80-100); SITE LR ALINE; TOTAL RESP RATE 26 resp/min
[2017-05-16 16:25] LABS: BASE EXCESS 1.5 mEq/L (-3 to +3); BICARBONATE 24.9 mEq/L (22-26); CARBOXY HGB 1.8 % (0-5); DEVICE 840 VENTILATOR; FI02 100 %; METHEMOGLOBIN 1.6 % (0-1.5); MODE BILEVEL; PCO2 35 mm Hg (35-45); PO2 425 mm Hg (80-100); SITE A LINE; pH 7.46 (7.35-7.45)
[2017-05-16 16:26] LABS: COMMENTS - BLOOD GASES C+; CONTINUOUS POS AIRWAY PRESSURE 0 cm H2O; MECHANICAL RATE 24 resp/min; PEEP 34 CM/H20; TOTAL RESP RATE 24 resp/min
[2017-05-16 18:40] LABS: BASE EXCESS 1.2 mEq/L (-3 to +3); BICARBONATE 25.1 mEq/L (22-26); CARBOXY HGB 2.1 % (0-5); METHEMOGLOBIN 1.4 % (0-1.5); PCO2 37 mm Hg (35-45); PO2 116 mm Hg (80-100); pH 7.44 (7.35-7.45)
[2017-05-16 18:41] LABS: FI02 60 %; SITE A LINE
[2017-05-16 18:42] LABS: MECHANICAL RATE 18 resp/min; MODE BiLevel; TOTAL RESP RATE 18 resp/min
[2017-05-16 18:43] LABS: COMMENTS - BLOOD GASES C+
[2017-05-17 08:00] VITALS: BP 100/61
[2017-05-17 12:44] LABS: BASE EXCESS 5.2 mEq/L (-3 to +3); BICARBONATE 27.8 mEq/L (22-26); CARBOXY HGB 2.1 % (0-5); METHEMOGLOBIN 1.6 % (0-1.5); PCO2 34 mm Hg (35-45); PO2 297 mm Hg (80-100); pH 7.52 (7.35-7.45)
[2017-05-17 12:45] LABS: DEVICE 840; FI02 100 %; MECHANICAL RATE 18 resp/min; MODE BILEVEL; SITE ALINE; TOTAL RESP RATE 18 resp/min
[2017-05-17 18:00] VITALS: BP 143/102
[2017-05-17 20:00] VITALS: BP 147/102
[2017-05-17 21:00] VITALS: BP 149/103
[2017-05-17 22:00] VITALS: BP 146/107
[2017-05-18] VITALS (11 sets, daily range): BP systolic 138–168; BP diastolic 101–113
[2017-05-18 06:32] LABS: ANION GAP 12 MEQ/L (2-14); CHLORIDE 99 MEQ/L (99-109); GFR ESTIMATE (CALCULATED) > 59 mL/min/; GLUCOSE 140 mg/dL (70-99); MAGNESIUM 2.3 mg/dl (1.3-2.7); SAMPLE HEMOLYSIS CHECK 1; SAMPLE ICTERIC CHECK 0; SAMPLE LIPEMIA CHECK 0; SODIUM 137 MEQ/L (136-147)
[2017-05-18 06:37] LABS: UREA NITROGEN (BUN) 41 mg/dL (9-23)
[2017-05-18 09:48] LABS: EOSINOPHIL (%) 0 % (0-5); HEMATOCRIT 44.3 % (38.0-50.0); IMMATURE GRANULOCYTE (%) 0.7 % (0.0-0.7); IMMATURE GRANULOCYTE COUNT 0.1 K/uL; INSTRUMENT ABS NEUTROPHIL CT 14.9 K/uL; LYMPHOCYTE COUNT 0.6 K/uL (1.0-2.8); MCH 30.9 PG (29.0-34.0); MCHC 33.9 G/DL (30.0-36.0); MCV 91.3 FL (86-99); MEAN PLAT.VOLUME 10.3 uM^3 (9.0-12.4); MONOCYTE (%) 9.5 % (3-12); MONOCYTE COUNT 1.7 K/uL (0-0.8); NEUTROPHIL (%) 86.2 % (45-76); NEUTROPHIL COUNT 14.9 K/uL (1.8-6.4); PLATELET COUNT 187 K/uL (156-360); RBC DIS.WIDTH-CV 15.2 % (11.8-14.6); RBC DIS.WIDTH-SD 50.4 % (39-53); RED BLOOD COUNT 4.85 M/uL (4.00-5.50); WHITE BLOOD COUNT 17.3 K/uL (4.1-10.2)
[2017-05-18 12:14] LABS: BASE EXCESS 2.5 mEq/L (-3 to +3); METHEMOGLOBIN 1.7 % (0-1.5); PCO2 32 mm Hg (35-45); PO2 267 mm Hg (80-100)
[2017-05-18 12:15] LABS: DEVICE 840; FI02 70 %; MECHANICAL RATE 15 resp/min; MODE BILEVEL; SITE ALINE; TOTAL RESP RATE 15 resp/min
[2017-05-18 12:16] LABS: INSPIRATION TIME 3.5 seconds
[2017-05-19] VITALS (8 sets, daily range): BP systolic 126–202; BP diastolic 92–114
[2017-05-19 08:22] LABS: BASE EXCESS 5.8 mEq/L (-3 to +3); BICARBONATE 28.4 mEq/L (22-26); CARBOXY HGB 2.2 % (0-5); METHEMOGLOBIN 1.5 % (0-1.5); PCO2 34 mm Hg (35-45); pH 7.53 (7.35-7.45)
[2017-05-19 08:23] LABS: DEVICE 840; FI02 50 %; MECHANICAL RATE 15 resp/min; MODE BILEVEL; PO2 152 mm Hg (80-100); SITE ALINE
[2017-05-19 08:24] LABS: PRES. SUPPORT 39 CM/H2O; TOTAL RESP RATE 15 resp/min
[2017-05-19 08:51] LABS: HEMATOCRIT 43.8 % (38.0-50.0); MCH 29.6 PG (29.0-34.0); MCHC 32.2 G/DL (30.0-36.0); MCV 91.8 FL (86-99); MEAN PLAT.VOLUME 10.8 uM^3 (9.0-12.4); PLATELET COUNT 165 K/uL (156-360); RBC DIS.WIDTH-CV 14.9 % (11.8-14.6); RBC DIS.WIDTH-SD 50.4 % (39-53); RED BLOOD COUNT 4.77 M/uL (4.00-5.50); WHITE BLOOD COUNT 15.2 K/uL (4.1-10.2)
[2017-05-19 09:11] LABS: ANION GAP 9 MEQ/L (2-14); CHLORIDE 102 MEQ/L (99-109); POTASSIUM 3.6 MEQ/L (3.7-5.4); SAMPLE HEMOLYSIS CHECK 0; SAMPLE ICTERIC CHECK 0; SAMPLE LIPEMIA CHECK 0; SODIUM 138 MEQ/L (136-147)
[2017-05-19 09:17] LABS: GFR ESTIMATE (CALCULATED) > 59 mL/min/; GLUCOSE 128 mg/dL (70-99); UREA NITROGEN (BUN) 34 mg/dL (9-23)
[2017-05-20] VITALS (7 sets, daily range): BP systolic 0–164; BP diastolic 0–109
[2017-05-20 18:29] LABS: ANION GAP 11 MEQ/L (2-14); CHLORIDE 105 MEQ/L (99-109); POTASSIUM 3.8 MEQ/L (3.7-5.4); SAMPLE HEMOLYSIS CHECK 0; SAMPLE ICTERIC CHECK 0; SAMPLE LIPEMIA CHECK 0; SODIUM 138 MEQ/L (136-147)
[2017-05-20 18:48] LABS: GFR ESTIMATE (CALCULATED) > 59 mL/min/; UREA NITROGEN (BUN) 39 mg/dL (9-23)
[2017-05-20 18:51] LABS: GLUCOSE 193 mg/dL (70-99)
[2017-05-21] VITALS: BP 162/100
[2017-05-21 04:00] VITALS: BP 120/82
[2017-05-21 08:00] VITALS: BP 137/86
[2017-05-21 12:00] VITALS: BP 133/68
[2017-05-21 13:29] LABS: EOSINOPHIL (%) 0 % (0-5); HEMATOCRIT 38.7 % (38.0-50.0); IMMATURE GRANULOCYTE (%) 1.2 % (0.0-0.7); IMMATURE GRANULOCYTE COUNT 0.2 K/uL; INSTRUMENT ABS NEUTROPHIL CT 12.6 K/uL; LYMPHOCYTE COUNT 0.2 K/uL (1.0-2.8); MCH 29.5 PG (29.0-34.0); MCHC 31.3 G/DL (30.0-36.0); MCV 94.4 FL (86-99); MEAN PLAT.VOLUME 11.5 uM^3 (9.0-12.4); MONOCYTE (%) 6.5 % (3-12); MONOCYTE COUNT 0.9 K/uL (0-0.8); NEUTROPHIL (%) 90.7 % (45-76); NEUTROPHIL COUNT 12.6 K/uL (1.8-6.4); PLATELET COUNT 139 K/uL (156-360); RBC DIS.WIDTH-SD 51.9 % (39-53); WHITE BLOOD COUNT 13.9 K/uL (4.1-10.2)
[2017-05-21 13:32] LABS: ALKALINE PHOSPHATASE 43 IU/L (3-129); ANION GAP 9 MEQ/L (2-14); CHLORIDE 105 MEQ/L (99-109); GFR ESTIMATE (CALCULATED) > 59 mL/min/; GLUCOSE 149 mg/dL (70-99); MAGNESIUM 2.3 mg/dl (1.3-2.7); POTASSIUM 3.7 MEQ/L (3.7-5.4); SAMPLE HEMOLYSIS CHECK 0; SAMPLE ICTERIC CHECK 0; SAMPLE LIPEMIA CHECK 0; SODIUM 143 MEQ/L (136-147); TOTAL BILIRUBIN 0.7 MG/DL (0.0-1.0); UREA NITROGEN (BUN) 40 mg/dL (9-23)
[2017-05-21 16:00] VITALS: BP 149/77
[2017-05-21 23:00] VITALS: BP 149/77
[2017-05-22] VITALS (7 sets, daily range): BP systolic 130–166; BP diastolic 77–101
[2017-05-22 09:29] LABS: EOSINOPHIL (%) 0 % (0-5); HEMATOCRIT 38.1 % (38.0-50.0); IMMATURE GRANULOCYTE (%) 1.6 % (0.0-0.7); IMMATURE GRANULOCYTE COUNT 0.2 K/uL; INSTRUMENT ABS NEUTROPHIL CT 10.4 K/uL; LYMPHOCYTE COUNT 0.5 K/uL (1.0-2.8); MCH 30.4 PG (29.0-34.0); MEAN PLAT.VOLUME 11.5 uM^3 (9.0-12.4); MONOCYTE (%) 6.8 % (3-12); MONOCYTE COUNT 0.8 K/uL (0-0.8); NEUTROPHIL (%) 87.1 % (45-76); NEUTROPHIL COUNT 10.4 K/uL (1.8-6.4); PLATELET COUNT 170 K/uL (156-360); RBC DIS.WIDTH-CV 15.1 % (11.8-14.6); RBC DIS.WIDTH-SD 52.5 % (39-53); RED BLOOD COUNT 4.01 M/uL (4.00-5.50); WHITE BLOOD COUNT 11.9 K/uL (4.1-10.2)
[2017-05-22 09:53] LABS: ANION GAP 6 MEQ/L (2-14); CHLORIDE 108 MEQ/L (99-109); MAGNESIUM 2.2 mg/dl (1.3-2.7); SAMPLE HEMOLYSIS CHECK 0; SAMPLE ICTERIC CHECK 0; SAMPLE LIPEMIA CHECK 0; SODIUM 145 MEQ/L (136-147)
[2017-05-22 09:59] LABS: GFR ESTIMATE (CALCULATED) > 59 mL/min/; GLUCOSE 140 mg/dL (70-99); UREA NITROGEN (BUN) 33 mg/dL (9-23)
[2017-05-23] VITALS (12 sets, daily range): BP systolic 123–164; BP diastolic 63–100
[2017-05-23 08:45] LABS: EOSINOPHIL (%) 0 % (0-5); HEMATOCRIT 36.3 % (38.0-50.0); IMMATURE GRANULOCYTE (%) 1.4 % (0.0-0.7); IMMATURE GRANULOCYTE COUNT 0.2 K/uL; INSTRUMENT ABS NEUTROPHIL CT 12.2 K/uL; LYMPHOCYTE COUNT 0.4 K/uL (1.0-2.8); MCH 30.6 PG (29.0-34.0); MCHC 32.2 G/DL (30.0-36.0); MEAN PLAT.VOLUME 11.2 uM^3 (9.0-12.4); MONOCYTE (%) 6.2 % (3-12); MONOCYTE COUNT 0.9 K/uL (0-0.8); NEUTROPHIL (%) 89.2 % (45-76); NEUTROPHIL COUNT 12.2 K/uL (1.8-6.4); PLATELET COUNT 196 K/uL (156-360); RBC DIS.WIDTH-CV 15.1 % (11.8-14.6); RBC DIS.WIDTH-SD 52.6 % (39-53); RED BLOOD COUNT 3.82 M/uL (4.00-5.50); WHITE BLOOD COUNT 13.7 K/uL (4.1-10.2)
[2017-05-23 09:11] LABS: ANION GAP 8 MEQ/L (2-14); CHLORIDE 108 MEQ/L (99-109); GFR ESTIMATE (CALCULATED) > 59 mL/min/; GLUCOSE 123 mg/dL (70-99); MAGNESIUM 2.1 mg/dl (1.3-2.7); POTASSIUM 4.7 MEQ/L (3.7-5.4); SAMPLE HEMOLYSIS CHECK 1; SAMPLE ICTERIC CHECK 0; SAMPLE LIPEMIA CHECK 0; SODIUM 145 MEQ/L (136-147); UREA NITROGEN (BUN) 27 mg/dL (9-23)
[2017-05-23 16:54] LABS: C DIFF TOXIN NEGATIVE (NEGATIVE)
[2017-05-23 17:01] LABS: PROBE CHECK PASS; SPECIMEN PROCESSING CONTROL PASS
[2017-05-24] VITALS (8 sets, daily range): BP systolic 116–163; BP diastolic 63–86
[2017-05-24 09:41] LABS: EOSINOPHIL (%) 0 % (0-5); HEMATOCRIT 41.2 % (38.0-50.0); IMMATURE GRANULOCYTE (%) 1.2 % (0.0-0.7); IMMATURE GRANULOCYTE COUNT 0.1 K/uL; LYMPHOCYTE COUNT 0.7 K/uL (1.0-2.8); MCH 30.8 PG (29.0-34.0); MCV 93.2 FL (86-99); MEAN PLAT.VOLUME 10.5 uM^3 (9.0-12.4); MONOCYTE (%) 7.3 % (3-12); MONOCYTE COUNT 0.9 K/uL (0-0.8); NEUTROPHIL (%) 85.1 % (45-76); PLATELET COUNT 174 K/uL (156-360); RBC DIS.WIDTH-CV 15.3 % (11.8-14.6); RBC DIS.WIDTH-SD 52.6 % (39-53); RED BLOOD COUNT 4.42 M/uL (4.00-5.50); WHITE BLOOD COUNT 11.8 K/uL (4.1-10.2)
[2017-05-24 10:07] LABS: ANION GAP 9 MEQ/L (2-14); CHLORIDE 103 MEQ/L (99-109); GFR ESTIMATE (CALCULATED) > 59 mL/min/; POTASSIUM 3.8 MEQ/L (3.7-5.4); SAMPLE HEMOLYSIS CHECK 0; SAMPLE ICTERIC CHECK 0; SAMPLE LIPEMIA CHECK 0; SODIUM 145 MEQ/L (136-147); UREA NITROGEN (BUN) 25 mg/dL (9-23)
[2017-05-24 10:09] LABS: GLUCOSE 91 mg/dL (70-99)
[2017-05-24 10:26] LABS: GASTRIC OCCULT BLD. POSITIVE; INTERNAL CONTROL VALID? YES
[2017-05-24 18:01] LABS: HEMATOCRIT 38.5 % (38.0-50.0); MCV 93.2 FL (86-99)
[2017-05-25] VITALS (7 sets, daily range): BP systolic 100–152; BP diastolic 62–94
[2017-05-25 05:58] LABS: EOSINOPHIL (%) 0 % (0-5); HEMATOCRIT 38.9 % (38.0-50.0); IMMATURE GRANULOCYTE COUNT 0.1 K/uL; INSTRUMENT ABS NEUTROPHIL CT 9.3 K/uL; LYMPHOCYTE COUNT 0.7 K/uL (1.0-2.8); MCHC 32.4 G/DL (30.0-36.0); MCV 92.6 FL (86-99); MEAN PLAT.VOLUME 10.6 uM^3 (9.0-12.4); MONOCYTE (%) 7.7 % (3-12); MONOCYTE COUNT 0.8 K/uL (0-0.8); NEUTROPHIL (%) 85.2 % (45-76); NEUTROPHIL COUNT 9.3 K/uL (1.8-6.4); PLATELET COUNT 158 K/uL (156-360); WHITE BLOOD COUNT 10.9 K/uL (4.1-10.2)
[2017-05-25 06:41] LABS: ANION GAP 11 MEQ/L (2-14); CHLORIDE 101 MEQ/L (99-109); GFR ESTIMATE (CALCULATED) > 59 mL/min/; GLUCOSE 87 mg/dL (70-99); POTASSIUM 3.4 MEQ/L (3.7-5.4); SAMPLE HEMOLYSIS CHECK 0; SAMPLE ICTERIC CHECK 0; SAMPLE LIPEMIA CHECK 0; SODIUM 145 MEQ/L (136-147); UREA NITROGEN (BUN) 25 mg/dL (9-23)
[2017-05-26] VITALS (12 sets, daily range): BP systolic 110–162; BP diastolic 65–108
[2017-05-26 09:11] LABS: ANION GAP 9 MEQ/L (2-14); CHLORIDE 102 MEQ/L (99-109); MAGNESIUM 1.9 mg/dl (1.3-2.7); POTASSIUM 3.2 MEQ/L (3.7-5.4); SAMPLE HEMOLYSIS CHECK 0; SAMPLE ICTERIC CHECK 0; SAMPLE LIPEMIA CHECK 0; SODIUM 147 MEQ/L (136-147)
[2017-05-26 09:17] LABS: GFR ESTIMATE (CALCULATED) > 59 mL/min/; GLUCOSE 88 mg/dL (70-99); UREA NITROGEN (BUN) 29 mg/dL (9-23)
[2017-05-26 09:25] LABS: EOSINOPHIL (%) 0.3 % (0-5); HEMATOCRIT 40.7 % (38.0-50.0); IMMATURE GRANULOCYTE (%) 0.5 % (0.0-0.7); IMMATURE GRANULOCYTE COUNT 0.1 K/uL; INSTRUMENT ABS NEUTROPHIL CT 7.6 K/uL; LYMPHOCYTE COUNT 0.8 K/uL (1.0-2.8); MCHC 31.9 G/DL (30.0-36.0); MONOCYTE (%) 8.5 % (3-12); MONOCYTE COUNT 0.8 K/uL (0-0.8); NEUTROPHIL (%) 81.7 % (45-76); NEUTROPHIL COUNT 7.6 K/uL (1.8-6.4); PLATELET COUNT 138 K/uL (156-360); RBC DIS.WIDTH-CV 14.9 % (11.8-14.6); RBC DIS.WIDTH-SD 51.7 % (39-53); RED BLOOD COUNT 4.33 M/uL (4.00-5.50); WHITE BLOOD COUNT 9.3 K/uL (4.1-10.2)
[2017-05-27] VITALS (11 sets, daily range): BP systolic 100–146; BP diastolic 55–96
[2017-05-27 06:09] LABS: HEMATOCRIT 41.1 % (38.0-50.0); MCH 28.9 PG (29.0-34.0); MCHC 31.4 G/DL (30.0-36.0); MCV 92.2 FL (86-99); MEAN PLAT.VOLUME 10.8 uM^3 (9.0-12.4); PLATELET COUNT 156 K/uL (156-360); RBC DIS.WIDTH-CV 14.6 % (11.8-14.6); RBC DIS.WIDTH-SD 49.9 % (39-53); RED BLOOD COUNT 4.46 M/uL (4.00-5.50); WHITE BLOOD COUNT 11.5 K/uL (4.1-10.2)
[2017-05-27 06:36] LABS: ANION GAP 10 MEQ/L (2-14); CHLORIDE 101 MEQ/L (99-109); GFR ESTIMATE (CALCULATED) > 59 mL/min/; GLUCOSE 125 mg/dL (70-99); POTASSIUM 2.9 MEQ/L (3.7-5.4); SAMPLE HEMOLYSIS CHECK 0; SAMPLE ICTERIC CHECK 0; SAMPLE LIPEMIA CHECK 0; SODIUM 146 MEQ/L (136-147); UREA NITROGEN (BUN) 30 mg/dL (9-23)
[2017-05-27 08:59] LABS: BASE EXCESS 13.3 mEq/L (-3 to +3); CARBOXY HGB 2.3 % (0-5); METHEMOGLOBIN 1.5 % (0-1.5); pH 7.53 (7.35-7.45)
[2017-05-27 09:00] LABS: BICARBONATE 37.6 mEq/L (22-26); COMMENTS - BLOOD GASES A+C+; DEVICE 840; FI02 80 %; MECHANICAL RATE 15 resp/min; MODE A/C; PCO2 45 mm Hg (35-45); PO2 50 mm Hg (80-100); SITE LR
[2017-05-27 09:01] LABS: PEEP 10 CM/H20; TIDAL VOLUME 500 ML; TOTAL RESP RATE 26 resp/min
[2017-05-27 20:35] LABS: BASE EXCESS 10.8 mEq/L (-3 to +3); BICARBONATE 35.8 mEq/L (22-26); COMMENTS - BLOOD GASES C+; DEVICE VENT; FI02 100 %; MECHANICAL RATE 26 resp/min; METHEMOGLOBIN 1.5 % (0-1.5); MODE AC; PCO2 47 mm Hg (35-45); PO2 120 mm Hg (80-100); SITE RR; TOTAL RESP RATE 33 resp/min; pH 7.49 (7.35-7.45)
[2017-05-27 20:36] LABS: PEEP 18 CM/H20; TIDAL VOLUME 420 ML
[2017-05-28] VITALS (14 sets, daily range): BP systolic 94–131; BP diastolic 62–84
[2017-05-28 05:51] LABS: HEMATOCRIT 41.4 % (38.0-50.0); MCH 30.1 PG (29.0-34.0); MCHC 32.1 G/DL (30.0-36.0); MCV 93.7 FL (86-99); MEAN PLAT.VOLUME 10.9 uM^3 (9.0-12.4); PLATELET COUNT 165 K/uL (156-360); RBC DIS.WIDTH-CV 14.6 % (11.8-14.6); RBC DIS.WIDTH-SD 50.4 % (39-53); RED BLOOD COUNT 4.42 M/uL (4.00-5.50); WHITE BLOOD COUNT 13.2 K/uL (4.1-10.2)
[2017-05-28 06:17] LABS: ANION GAP 9 MEQ/L (2-14); CHLORIDE 102 MEQ/L (99-109); GFR ESTIMATE (CALCULATED) > 59 mL/min/; GLUCOSE 126 mg/dL (70-99); POTASSIUM 3.3 MEQ/L (3.7-5.4); SAMPLE HEMOLYSIS CHECK 0; SAMPLE ICTERIC CHECK 0; SAMPLE LIPEMIA CHECK 0; SODIUM 146 MEQ/L (136-147); UREA NITROGEN (BUN) 27 mg/dL (9-23)
[2017-05-29] VITALS (14 sets, daily range): BP systolic 96–137; BP diastolic 58–95
[2017-05-29 05:11] LABS: CHLORIDE 103 mEq/L (99-109); POTASSIUM 3.3 mEq/L (3.7-5.4); SODIUM 148 mEq/L (136-147)
[2017-05-29 05:12] LABS: MAGNESIUM 1.8 mg/dL (1.3-2.7)
[2017-05-29 05:13] LABS: GLUCOSE 141 mg/dL (70-99)
[2017-05-29 05:15] LABS: ANION GAP 11 MEQ/L (2-14)
[2017-05-29 05:17] LABS: GFR ESTIMATE (CALCULATED) > 59 mL/min/
[2017-05-29 05:18] LABS: UREA NITROGEN (BUN) 32 mg/dL (9-23)
[2017-05-30] VITALS (12 sets, daily range): BP systolic 0–149; BP diastolic 0–90
[2017-05-30 05:45] LABS: HEMATOCRIT 43.8 % (38.0-50.0); MCH 28.8 PG (29.0-34.0); MCHC 30.4 G/DL (30.0-36.0); MCV 94.8 FL (86-99); MEAN PLAT.VOLUME 11.5 uM^3 (9.0-12.4); PLATELET COUNT 160 K/uL (156-360); RBC DIS.WIDTH-CV 14.6 % (11.8-14.6); RBC DIS.WIDTH-SD 50.9 % (39-53); RED BLOOD COUNT 4.62 M/uL (4.00-5.50); WHITE BLOOD COUNT 16.1 K/uL (4.1-10.2)
[2017-05-30 06:07] LABS: ANION GAP 11 MEQ/L (2-14); CHLORIDE 105 MEQ/L (99-109); GFR ESTIMATE (CALCULATED) > 59 mL/min/; GLUCOSE 139 mg/dL (70-99); POTASSIUM 3.1 MEQ/L (3.7-5.4); SAMPLE HEMOLYSIS CHECK 0; SAMPLE ICTERIC CHECK 0; SAMPLE LIPEMIA CHECK 0; SODIUM 148 MEQ/L (136-147); UREA NITROGEN (BUN) 34 mg/dL (9-23)
[2017-05-31] VITALS: BP 119/88
[2017-05-31 04:00] VITALS: BP 109/80
[2017-05-31 05:17] LABS: HEMATOCRIT 39.6 % (38.0-50.0); MCH 30.2 PG (29.0-34.0); MCHC 32.1 G/DL (30.0-36.0); MCV 94.1 FL (86-99); NRBC (%) 0.2 /100 WBC (0-0); PLATELET COUNT 137 K/uL (156-360); RBC DIS.WIDTH-CV 14.7 % (11.8-14.6); RBC DIS.WIDTH-SD 50.9 % (39-53); RED BLOOD COUNT 4.21 M/uL (4.00-5.50); WHITE BLOOD COUNT 13.4 K/uL (4.1-10.2)
[2017-05-31 05:43] LABS: ANION GAP 9 MEQ/L (2-14); CHLORIDE 102 MEQ/L (99-109); GFR ESTIMATE (CALCULATED) > 59 mL/min/; GLUCOSE 143 mg/dL (70-99); POTASSIUM 3.3 MEQ/L (3.7-5.4); SAMPLE HEMOLYSIS CHECK 0; SAMPLE ICTERIC CHECK 0; SAMPLE LIPEMIA CHECK 0; SODIUM 144 MEQ/L (136-147); UREA NITROGEN (BUN) 35 mg/dL (9-23)
[2017-05-31 08:00] VITALS: BP 133/71
[2017-05-31 12:00] VITALS: BP 121/73
[2017-05-31 16:00] VITALS: BP 113/78
[2017-05-31 20:00] VITALS: BP 134/87
[2017-06-01] VITALS (10 sets, daily range): BP systolic 107–131; BP diastolic 63–85
[2017-06-01 05:25] LABS: BASE EXCESS 9.3 mEq/L (-3 to +3); BICARBONATE 33.5 mEq/L (22-26); CARBOXY HGB 2.6 % (0-5); COMMENTS - BLOOD GASES A+C+; DEVICE VENT; FI02 60 %; MECHANICAL RATE 26 resp/min; METHEMOGLOBIN 1.7 % (0-1.5); MODE AC; PCO2 43 mm Hg (35-45); PEEP 10 CM/H20; PO2 57 mm Hg (80-100); SITE RR; TIDAL VOLUME 420 ML; TOTAL RESP RATE 35 resp/min
[2017-06-01 05:47] LABS: ANION GAP 6 MEQ/L (2-14); CHLORIDE 100 MEQ/L (99-109); GFR ESTIMATE (CALCULATED) > 59 mL/min/; GLUCOSE 143 mg/dL (70-99); POTASSIUM 3.8 MEQ/L (3.7-5.4); SAMPLE HEMOLYSIS CHECK 0; SAMPLE ICTERIC CHECK 0; SAMPLE LIPEMIA CHECK 0; SODIUM 139 MEQ/L (136-147); UREA NITROGEN (BUN) 25 mg/dL (9-23)
[2017-06-02] VITALS (10 sets, daily range): BP systolic 109–149; BP diastolic 70–96
[2017-06-02 08:06] LABS: ANION GAP 8 MEQ/L (2-14); CHLORIDE 96 MEQ/L (99-109); GFR ESTIMATE (CALCULATED) > 59 mL/min/; GLUCOSE 145 mg/dL (70-99); POTASSIUM 4.2 MEQ/L (3.7-5.4); SAMPLE HEMOLYSIS CHECK 0; SAMPLE ICTERIC CHECK 0; SAMPLE LIPEMIA CHECK 0; SODIUM 134 MEQ/L (136-147); UREA NITROGEN (BUN) 20 mg/dL (9-23)
[2017-06-02 08:12] LABS: EOSINOPHIL (%) 0.2 % (0-5); HEMATOCRIT 35.9 % (38.0-50.0); IMMATURE GRANULOCYTE (%) 0.8 % (0.0-0.7); IMMATURE GRANULOCYTE COUNT 0.1 K/uL; INSTRUMENT ABS NEUTROPHIL CT 10.7 K/uL; LYMPHOCYTE COUNT 0.6 K/uL (1.0-2.8); MCH 29.5 PG (29.0-34.0); MCHC 32.6 G/DL (30.0-36.0); MCV 90.4 FL (86-99); MONOCYTE (%) 4.7 % (3-12); MONOCYTE COUNT 0.6 K/uL (0-0.8); NEUTROPHIL (%) 89.5 % (45-76); NEUTROPHIL COUNT 10.7 K/uL (1.8-6.4); RBC DIS.WIDTH-SD 46.9 % (39-53); RED BLOOD COUNT 3.97 M/uL (4.00-5.50)
[2017-06-02 09:20] LABS: PLAT.SUFFICIENCY DECREASED; PLATELET CLUMPS PRESENT - PLATELET COUNTS APPEARS DECREASED
[2017-06-02 09:21] LABS: PLATELET COUNT UNABLE TO REPORT K/uL (156-360)
[2017-06-02] MEDS ORDERED: AMLODIPINE BESY10 MG GT (10:13)
[2017-06-02] MEDS ORDERED: LOPRESSOR25 MG PO (10:13)
[2017-06-02] MEDS ORDERED: K-DUR20 MEQ PO (10:13)
[2017-06-02] MEDS ORDERED: ALBUTEROL2.5 MG/0.5 AEROSOL (10:13)
[2017-06-02] MEDS ORDERED: ADVAIR HFA120 INHALA IH (10:13)
[2017-06-02] MEDS ORDERED: LASIX20 MG PO (10:13)
[2017-06-02] MEDS ORDERED: PREDNISONE20 MG PO (10:13)
[2017-06-02 12:23] LABS: BASE EXCESS 5.9 mEq/L (-3 to +3); BICARBONATE 29.7 mEq/L (22-26); METHEMOGLOBIN 1.7 % (0-1.5); PCO2 39 mm Hg (35-45); PO2 48 mm Hg (80-100); pH 7.49 (7.35-7.45)
[2017-06-02 12:26] LABS: DEVICE VENT; FI02 70 %; MECHANICAL RATE 26 resp/min; MODE AC/VC; SITE RR
[2017-06-02 12:27] LABS: PEEP 10 CM/H20; TIDAL VOLUME 420 ML
[2017-06-02 13:30] LABS: BASE EXCESS 5.9 mEq/L (-3 to +3); BICARBONATE 29.7 mEq/L (22-26); CARBOXY HGB 2.1 % (0-5); COMMENTS - BLOOD GASES C+; DEVICE VENT; FI02 70 %; MECHANICAL RATE 26 resp/min; METHEMOGLOBIN 1.7 % (0-1.5); MODE AC/VC; PCO2 39 mm Hg (35-45); PEEP 10 CM/H20; PO2 50 mm Hg (80-100); SITE RR; TIDAL VOLUME 420 ML; pH 7.49 (7.35-7.45)
[2017-06-03] VITALS (18 sets, daily range): BP systolic 106–155; BP diastolic 68–100
[2017-06-03 05:33] LABS: HEMATOCRIT 38.5 % (38.0-50.0); MCH 28.6 PG (29.0-34.0); MCHC 31.2 G/DL (30.0-36.0); MCV 91.9 FL (86-99); MEAN PLAT.VOLUME 12.3 uM^3 (9.0-12.4); RBC DIS.WIDTH-SD 47.3 % (39-53); RED BLOOD COUNT 4.19 M/uL (4.00-5.50); WHITE BLOOD COUNT 10.2 K/uL (4.1-10.2)
[2017-06-03 05:46] LABS: PLATELET COUNT 106 K/uL (156-360)
[2017-06-03 05:48] LABS: BASE EXCESS 5.9 mEq/L (-3 to +3); BICARBONATE 29.7 mEq/L (22-26); CARBOXY HGB 1.8 % (0-5); DEVICE 840; FI02 100 %; METHEMOGLOBIN 1.9 % (0-1.5); MODE AC/VC+; PCO2 39 mm Hg (35-45); PO2 50 mm Hg (80-100); SITE LR; pH 7.49 (7.35-7.45)
[2017-06-03 05:49] LABS: INSPIRATION TIME 0.9 seconds; MECHANICAL RATE 26 resp/min; PEEP 12 CM/H20; TIDAL VOLUME 500 ML; TOTAL RESP RATE 28 resp/min
[2017-06-03 05:58] LABS: ANION GAP 10 MEQ/L (2-14); CHLORIDE 96 MEQ/L (99-109); GFR ESTIMATE (CALCULATED) > 59 mL/min/; GLUCOSE 98 mg/dL (70-99); POTASSIUM 4.1 MEQ/L (3.7-5.4); SAMPLE HEMOLYSIS CHECK 0; SAMPLE ICTERIC CHECK 0; SAMPLE LIPEMIA CHECK 0; SODIUM 133 MEQ/L (136-147); UREA NITROGEN (BUN) 17 mg/dL (9-23)
[2017-06-04] VITALS (19 sets, daily range): BP systolic 105–144; BP diastolic 62–106
[2017-06-04 05:52] LABS: BASE EXCESS 7.9 mEq/L (-3 to +3); CARBOXY HGB 1.3 % (0-5); METHEMOGLOBIN 1.5 % (0-1.5); PCO2 42 mm Hg (35-45); pH 7.49 (7.35-7.45)
[2017-06-04 05:53] LABS: COMMENTS - BLOOD GASES A+C+; DEVICE 840; FI02 60 %; INSPIRATION TIME 0.8 seconds; MECHANICAL RATE 18 resp/min; MODE AC/VC+; PEEP 14 CM/H20; PO2 92 mm Hg (80-100); SITE LR; TIDAL VOLUME 500 ML; TOTAL RESP RATE 25 resp/min
[2017-06-04 06:18] LABS: ANION GAP 10 MEQ/L (2-14); CHLORIDE 97 MEQ/L (99-109); GFR ESTIMATE (CALCULATED) > 59 mL/min/; POTASSIUM 3.4 MEQ/L (3.7-5.4); SAMPLE HEMOLYSIS CHECK 0; SAMPLE ICTERIC CHECK 0; SAMPLE LIPEMIA CHECK 0; SODIUM 135 MEQ/L (136-147); UREA NITROGEN (BUN) 20 mg/dL (9-23)
[2017-06-04 06:19] LABS: GLUCOSE 179 mg/dL (70-99)
[2017-06-05] VITALS (15 sets, daily range): BP systolic 99–143; BP diastolic 66–95
[2017-06-05 05:21] LABS: HEMATOCRIT 34.7 % (38.0-50.0); MCH 30.2 PG (29.0-34.0); MCHC 33.1 G/DL (30.0-36.0); MCV 91.1 FL (86-99); MEAN PLAT.VOLUME 11.8 uM^3 (9.0-12.4); PLATELET COUNT 94 K/uL (156-360); RBC DIS.WIDTH-CV 14.1 % (11.8-14.6); RBC DIS.WIDTH-SD 47.1 % (39-53); RED BLOOD COUNT 3.81 M/uL (4.00-5.50); WHITE BLOOD COUNT 8.5 K/uL (4.1-10.2)
[2017-06-05 05:56] LABS: ANION GAP 9 MEQ/L (2-14); CHLORIDE 96 MEQ/L (99-109); GFR ESTIMATE (CALCULATED) > 59 mL/min/; GLUCOSE 157 mg/dL (70-99); POTASSIUM 3.7 MEQ/L (3.7-5.4); SAMPLE HEMOLYSIS CHECK 0; SAMPLE ICTERIC CHECK 0; SAMPLE LIPEMIA CHECK 0; SODIUM 134 MEQ/L (136-147); UREA NITROGEN (BUN) 24 mg/dL (9-23)
[2017-06-06] VITALS (11 sets, daily range): BP systolic 115–152; BP diastolic 72–92
[2017-06-07] VITALS: BP 130/80
[2017-06-07 04:00] VITALS: BP 118/77
[2017-06-07 08:00] VITALS: BP 128/96
[2017-06-07 12:00] VITALS: BP 134/82
[2017-06-07 16:00] VITALS: BP 125/71
[2017-06-07 20:00] VITALS: BP 133/87
[2017-06-08] VITALS (12 sets, daily range): BP systolic 103–128; BP diastolic 65–92
[2017-06-08 00:06] LABS: CHLORIDE 97 mEq/L (99-109); POTASSIUM 3.8 mEq/L (3.7-5.4); SODIUM 135 mEq/L (136-147)
[2017-06-08 00:07] LABS: GLUCOSE 140 mg/dL (70-99)
[2017-06-08 00:09] LABS: ANION GAP 12 MEQ/L (2-14)
[2017-06-08 00:11] LABS: GFR ESTIMATE (CALCULATED) > 59 mL/min/
[2017-06-08 00:12] LABS: UREA NITROGEN (BUN) 21 mg/dL (9-23)
[2017-06-08 09:13] LABS: MCH 30.3 PG (29.0-34.0); MCHC 33.7 G/DL (30.0-36.0); MCV 89.9 FL (86-99); MEAN PLAT.VOLUME 11.2 uM^3 (9.0-12.4); PLATELET COUNT 158 K/uL (156-360); RBC DIS.WIDTH-CV 14.8 % (11.8-14.6); RBC DIS.WIDTH-SD 48.7 % (39-53); RED BLOOD COUNT 4.56 M/uL (4.00-5.50); WHITE BLOOD COUNT 21.6 K/uL (4.1-10.2)
[2017-06-08 09:28] LABS: ANION GAP 10 MEQ/L (2-14); CHLORIDE 97 MEQ/L (99-109); GFR ESTIMATE (CALCULATED) > 59 mL/min/; POTASSIUM 4.1 MEQ/L (3.7-5.4); SAMPLE HEMOLYSIS CHECK 0; SAMPLE ICTERIC CHECK 0; SAMPLE LIPEMIA CHECK 0; SODIUM 135 MEQ/L (136-147); UREA NITROGEN (BUN) 22 mg/dL (9-23)
[2017-06-08 09:29] LABS: GLUCOSE 96 mg/dL (70-99)
[2017-06-09] VITALS (15 sets, daily range): BP systolic 105–131; BP diastolic 72–94
[2017-06-09 06:13] LABS: EOSINOPHIL (%) 0 % (0-5); HEMATOCRIT 38.9 % (38.0-50.0); IMMATURE GRANULOCYTE (%) 1.3 % (0.0-0.7); IMMATURE GRANULOCYTE COUNT 0.2 K/uL; INSTRUMENT ABS NEUTROPHIL CT 15.5 K/uL; LYMPHOCYTE COUNT 0.6 K/uL (1.0-2.8); MCH 28.7 PG (29.0-34.0); MCHC 31.9 G/DL (30.0-36.0); MEAN PLAT.VOLUME 11.1 uM^3 (9.0-12.4); MONOCYTE (%) 3.4 % (3-12); MONOCYTE COUNT 0.6 K/uL (0-0.8); NEUTROPHIL (%) 91.8 % (45-76); NEUTROPHIL COUNT 15.5 K/uL (1.8-6.4); PLATELET COUNT 172 K/uL (156-360); RBC DIS.WIDTH-CV 14.5 % (11.8-14.6); RBC DIS.WIDTH-SD 48.1 % (39-53); RED BLOOD COUNT 4.32 M/uL (4.00-5.50); WHITE BLOOD COUNT 16.8 K/uL (4.1-10.2)
[2017-06-09 06:32] LABS: ANION GAP 10 MEQ/L (2-14); CHLORIDE 101 MEQ/L (99-109); GFR ESTIMATE (CALCULATED) > 59 mL/min/; GLUCOSE 113 mg/dL (70-99); POTASSIUM 4.4 MEQ/L (3.7-5.4); SAMPLE HEMOLYSIS CHECK 0; SAMPLE ICTERIC CHECK 0; SAMPLE LIPEMIA CHECK 0; SODIUM 138 MEQ/L (136-147); UREA NITROGEN (BUN) 29 mg/dL (9-23)
[2017-06-10] VITALS (7 sets, daily range): BP systolic 103–132; BP diastolic 70–94
[2017-06-10 06:37] LABS: EOSINOPHIL (%) 0.3 % (0-5); HEMATOCRIT 36.9 % (38.0-50.0); IMMATURE GRANULOCYTE COUNT 0.1 K/uL; INSTRUMENT ABS NEUTROPHIL CT 10.3 K/uL; LYMPHOCYTE COUNT 0.5 K/uL (1.0-2.8); MCHC 31.7 G/DL (30.0-36.0); MCV 91.6 FL (86-99); MEAN PLAT.VOLUME 11.7 uM^3 (9.0-12.4); MONOCYTE (%) 5.2 % (3-12); MONOCYTE COUNT 0.6 K/uL (0-0.8); NEUTROPHIL (%) 88.7 % (45-76); NEUTROPHIL COUNT 10.3 K/uL (1.8-6.4); NRBC (%) 0.3 /100 WBC (0-0); RBC DIS.WIDTH-CV 14.7 % (11.8-14.6); RBC DIS.WIDTH-SD 49.5 % (39-53); RED BLOOD COUNT 4.03 M/uL (4.00-5.50); WHITE BLOOD COUNT 11.6 K/uL (4.1-10.2)
[2017-06-10 06:45] LABS: PLATELET COUNT 231 K/uL (156-360)
[2017-06-10 07:23] LABS: ANION GAP 11 MEQ/L (2-14); CHLORIDE 102 MEQ/L (99-109); GFR ESTIMATE (CALCULATED) > 59 mL/min/; GLUCOSE 85 mg/dL (70-99); MAGNESIUM 2.2 mg/dl (1.3-2.7); POTASSIUM 4.2 MEQ/L (3.7-5.4); SAMPLE HEMOLYSIS CHECK 1; SAMPLE ICTERIC CHECK 0; SAMPLE LIPEMIA CHECK 0; SODIUM 141 MEQ/L (136-147); UREA NITROGEN (BUN) 29 mg/dL (9-23)
[2017-06-11] VITALS: BP 106/77
[2017-06-11 04:00] VITALS: BP 110/77
[2017-06-11 05:40] LABS: EOSINOPHIL (%) 0.5 % (0-5); EOSINOPHIL COUNT 0.1 K/uL (0-0.3); HEMATOCRIT 34.9 % (38.0-50.0); IMMATURE GRANULOCYTE (%) 0.9 % (0.0-0.7); IMMATURE GRANULOCYTE COUNT 0.1 K/uL; INSTRUMENT ABS NEUTROPHIL CT 8.9 K/uL; LYMPHOCYTE COUNT 0.5 K/uL (1.0-2.8); MCH 29.9 PG (29.0-34.0); MCV 90.9 FL (86-99); MONOCYTE (%) 5.4 % (3-12); MONOCYTE COUNT 0.6 K/uL (0-0.8); NEUTROPHIL (%) 88.4 % (45-76); NEUTROPHIL COUNT 8.9 K/uL (1.8-6.4); NRBC (%) 0.3 /100 WBC (0-0); PLATELET COUNT 223 K/uL (156-360); RBC DIS.WIDTH-CV 14.6 % (11.8-14.6); RBC DIS.WIDTH-SD 48.5 % (39-53); RED BLOOD COUNT 3.84 M/uL (4.00-5.50); WHITE BLOOD COUNT 10.1 K/uL (4.1-10.2)
[2017-06-11 05:41] LABS: POTASSIUM ND MEQ/L (3.7-5.4)
[2017-06-11 05:56] LABS: ANION GAP 14 MEQ/L (2-14); CHLORIDE 102 MEQ/L (99-109); GFR ESTIMATE (CALCULATED) > 59 mL/min/; GLUCOSE 77 mg/dL (70-99); SAMPLE HEMOLYSIS CHECK 1; SAMPLE ICTERIC CHECK 0; SAMPLE LIPEMIA CHECK 0; SODIUM 142 MEQ/L (136-147); UREA NITROGEN (BUN) 23 mg/dL (9-23)
[2017-06-11 07:45] LABS: POTASSIUM 3.2 MEQ/L (3.7-5.4)
[2017-06-11 08:00] VITALS: BP 98/69
[2017-06-11 12:00] VITALS: BP 110/76
[2017-06-11 16:00] VITALS: BP 120/88
[2017-06-11 20:00] VITALS: BP 145/95
[2017-06-12] VITALS: BP 111/77
[2017-06-12 04:00] VITALS: BP 89/79
[2017-06-12 05:40] LABS: EOSINOPHIL (%) 0.3 % (0-5); IMMATURE GRANULOCYTE COUNT 0.1 K/uL; LYMPHOCYTE COUNT 0.6 K/uL (1.0-2.8); MCH 29.6 PG (29.0-34.0); MCHC 32.3 G/DL (30.0-36.0); MCV 91.6 FL (86-99); MEAN PLAT.VOLUME 10.7 uM^3 (9.0-12.4); MONOCYTE COUNT 0.4 K/uL (0-0.8); NEUTROPHIL (%) 89.1 % (45-76); PLATELET COUNT 165 K/uL (156-360); RBC DIS.WIDTH-CV 14.5 % (11.8-14.6); RBC DIS.WIDTH-SD 48.8 % (39-53); RED BLOOD COUNT 3.82 M/uL (4.00-5.50); WHITE BLOOD COUNT 10.1 K/uL (4.1-10.2)
[2017-06-12 06:04] LABS: ANION GAP 14 MEQ/L (2-14); CHLORIDE 101 MEQ/L (99-109); GFR ESTIMATE (CALCULATED) > 59 mL/min/; GLUCOSE 82 mg/dL (70-99); SAMPLE HEMOLYSIS CHECK 0; SAMPLE ICTERIC CHECK 0; SAMPLE LIPEMIA CHECK 0; SODIUM 143 MEQ/L (136-147); UREA NITROGEN (BUN) 19 mg/dL (9-23)
[2017-06-12 08:00] VITALS: BP 131/89
[2017-06-12 12:00] VITALS: BP 147/111
[2017-06-12 16:00] VITALS: BP 123/87
[2017-06-12 16:15] LABS: BASE EXCESS 7.2 mEq/L (-3 to +3); BICARBONATE 29.5 mEq/L (22-26); CARBOXY HGB 1.5 % (0-5); METHEMOGLOBIN 1.5 % (0-1.5)
[2017-06-12 16:16] LABS: PCO2 33 mm Hg (35-45); PO2 62 mm Hg (80-100); SITE RR; pH 7.56 (7.35-7.45)
[2017-06-12 16:17] LABS: COMMENTS - BLOOD GASES A+C+; DEVICE VENT; FI02 60 %; INSPIRATION TIME 0.8 seconds; MECHANICAL RATE 20 resp/min; MODE AC/VC+; PEEP 8 CM/H20; TIDAL VOLUME 500 ML; TOTAL RESP RATE 27 resp/min
[2017-06-12 20:00] VITALS: BP 118/86
[2017-06-13] VITALS: BP 121/88
[2017-06-13 02:00] VITALS: BP 117/85
[2017-06-13 04:00] VITALS: BP 118/86
[2017-06-13 05:06] LABS: HEMATOCRIT 34.7 % (38.0-50.0); MCHC 32.3 G/DL (30.0-36.0); MCV 89.9 FL (86-99); MEAN PLAT.VOLUME 10.5 uM^3 (9.0-12.4); PLATELET COUNT 184 K/uL (156-360); RBC DIS.WIDTH-CV 14.4 % (11.8-14.6); RBC DIS.WIDTH-SD 47.3 % (39-53); RED BLOOD COUNT 3.86 M/uL (4.00-5.50); WHITE BLOOD COUNT 11.8 K/uL (4.1-10.2)
[2017-06-13 05:21] LABS: CHLORIDE 105 mEq/L (99-109); POTASSIUM 2.7 mEq/L (3.7-5.4); SODIUM 144 mEq/L (136-147)
[2017-06-13 05:24] LABS: ANION GAP 15 MEQ/L (2-14); GLUCOSE 119 mg/dL (70-99)
[2017-06-13 05:26] LABS: GFR ESTIMATE (CALCULATED) > 59 mL/min/
[2017-06-13 05:27] LABS: UREA NITROGEN (BUN) 18 mg/dL (9-23)
[2017-06-13 05:31] LABS: BASE EXCESS 7.9 mEq/L (-3 to +3); BICARBONATE 30.6 mEq/L (22-26); CARBOXY HGB 1.7 % (0-5); METHEMOGLOBIN 1.3 % (0-1.5); PCO2 35 mm Hg (35-45); PO2 71 mm Hg (80-100); pH 7.55 (7.35-7.45)
[2017-06-13 05:32] LABS: COMMENTS - BLOOD GASES A+C+; DEVICE 840; FI02 50 %; INSPIRATION TIME 0.8 seconds; MECHANICAL RATE 18 resp/min; MODE ACVC+; PEEP 8 CM/H20; SITE RR; TIDAL VOLUME 500 ML; TOTAL RESP RATE 24 resp/min
[2017-06-13 08:00] VITALS: BP 124/83
[2017-06-13 12:00] VITALS: BP 106/70
[2017-06-13 16:00] VITALS: BP 114/81
== END 2017-06-13 17:30 | disposition designated cancer center or children's hospital (05) | DRG 208 ==
LOC: EME 15:55 → 4WEST 23:15 → EDOF 23:15 → 4WEST 23:20 → ENRESERV 23:23 → 4WEST 05-09 01:27
PROVIDERS: Emergency Medicine; Hospitalist; Internal Medicine; Internal Medicine Critical Care Medicine; Internal Medicine Nephrology; Internal Medicine Pulmonary Disease; Physician Assistant; Surgery
PROC: 5A1945Z Respiratory Ventilation, 24-96 Consecutive Hours (ICD-10-PCS; 2017-05-08)
PROC: 0B21XFZ Change Tracheostomy Device in Trachea, External Approach (ICD-10-PCS; principal; 2017-05-23)
PROC: 0DH63UZ Insertion of Feeding Device into Stomach, Percutaneous Approach (ICD-10-PCS; principal; 2017-05-23)
DX: J15.1 Pneumonia due to Pseudomonas (principal); J96.21 Acute and chronic respiratory failure with hypoxia; F32.9 Major depressive disorder, single episode, unspecified; L03.116 Cellulitis of left lower limb; F41.9 Anxiety disorder, unspecified; R13.10 Dysphagia, unspecified; Z86.711 Personal history of pulmonary embolism; I50.40 Unspecified combined systolic (congestive) and diastolic (congestive) heart failure; I11.0 Hypertensive heart disease with heart failure; Z86.718 Personal history of other venous thrombosis and embolism; G47.33 Obstructive sleep apnea (adult) (pediatric); F10.239 Alcohol dependence with withdrawal, unspecified; E78.5 Hyperlipidemia, unspecified; E87.4 Mixed disorder of acid-base balance; E87.1 Hypo-osmolality and hyponatremia; K56.7 Ileus, unspecified; L89.893 Pressure ulcer of other site, stage 3; E11.621 Type 2 diabetes mellitus with foot ulcer; E11.622 Type 2 diabetes mellitus with other skin ulcer; F11.90 Opioid use, unspecified, uncomplicated; L03.115 Cellulitis of right lower limb; Z86.73 Personal history of transient ischemic attack (TIA), and cerebral infarction without residual deficits; Z88.0 Allergy status to penicillin; Z91.19 Patient's noncompliance with other medical treatment and regimen; Z99.11 Dependence on respirator [ventilator] status
CPT/HCPCS: 36600; 70450; 71010; 71275; 73630; 73700; 74000; 74160; 74176; 80048; 80048 91; 80053; 80076; 80200; 80202; 81003; 82140; 82271; 82803; 82948; 83605; 83735; 83880; 83930; 83935; 84100; 84478; 84484; 84999; 85014; 85018; 85025; 85027; 86850; 86900; 86901; 87040; 87070; 87075; 87077; 87081; 87116; 87147; 87186; 87205; 87206; 87278; 87449; 87493; 87641; 88108; 93005; 93306; 93970; 94002; 94003; 94640; 94640 76; 94644; 94660; 94667; 94668; 94799; 97530 GO; 97530 GP; 99202; 99281; 99285; B4087; C1751; C1753; C9113; J0330; J0360; J0456; J0692; J1170; J1250; J1335; J1450; J1644; J1650; J1815; J1940; J2060; J2250; J2270; J2405; J2543; J2704; J2765; J2920; J2930; J3010; J3260; J3370; J3411; J3475; J3480; J7030; J7040; J7050; J7070; J7120; J7512; J7608; S0028; S0074

== ENCOUNTER 2017-10-30 20:19 | Inpatient (IN) | payer OTHER ==
[~2017-10-30] VITALS: Ht 172.7 cm; Wt 87.0 kg
[~2017-10-30 20:19] MED LIST changes: +ADVAIR HFA120 INHALA IH; +ALBUTEROL2.5 MG/0.5 AEROSOL; +AMLODIPINE BESY10 MG GT; +FOLIC ACID0.4 MG PO; +K-DUR20 MEQ PO; +LASIX20 MG PO; +LOPRESSOR25 MG PO; +MULTIVITAMIN1 EAC2 PO; +VITAMIN B-150 MG PO
[2017-10-30 20:55] LABS: BASOPHIL (%) 0.4 % (0-1); BASOPHIL COUNT 0.1 K/uL (0-0.1); EOSINOPHIL (%) 0.1 % (0-5); HEMATOCRIT 42.3 % (38.0-50.0); HEMOGLOBIN 12.3 G/DL (12.5-16.6); IMMATURE GRANULOCYTE (%) 3.8 % (0.0-0.7); LYMPHOCYTE (%) 9.3 % (15-42); LYMPHOCYTE COUNT 1.5 K/uL (1.0-2.8); MCH 26.1 PG (29.0-34.0); MCHC 29.1 G/DL (30.0-36.0); MCV 89.6 FL (86-99); MONOCYTE COUNT 0.6 K/uL (0-0.8); NEUTROPHIL (%) 82.4 % (45-76); NEUTROPHIL COUNT 13.1 K/uL (1.8-6.4); NRBC (%) 0.2 /100 WBC (0-0); PLATELET COUNT 443 K/uL (156-360); RBC DIS.WIDTH-CV 13.8 % (11.8-14.6); RBC DIS.WIDTH-SD 45.2 % (39-53); RED BLOOD COUNT 4.72 M/uL (4.00-5.50); WHITE BLOOD COUNT 15.8 K/uL (4.1-10.2)
[2017-10-30 21:17] LABS: ALBUMIN 3.7 g/dL (3.2-4.8); CHLORIDE 100 mEq/L (99-109); POTASSIUM 3.5 mEq/L (3.7-5.4); SODIUM 139 mEq/L (136-147)
[2017-10-30 21:18] LABS: INTER. NORMALIZED RATIO 1.4
[2017-10-30 21:19] LABS: GLUCOSE 181 mg/dL (70-99)
[2017-10-30 21:21] LABS: BASE EXCESS -16.1 mEq/L (-3 to +3); BICARBONATE 15.5 mEq/L (22-26); CARBOXY HGB 2.1 % (0-5); METHEMOGLOBIN 1.3 % (0-1.5); PCO2 66 mm Hg (35-45); PO2 490 mm Hg (80-100); pH 6.98 (7.35-7.45)
[2017-10-30 21:21] LABS: TOTAL BILIRUBIN 0.6 mg/dL (0.0-1.0)
[2017-10-30 21:22] LABS: SERUM ETHYL ALCOHOL < 10 mg/dL
[2017-10-30 21:22] LABS: COMMENTS - BLOOD GASES C+A+; DEVICE 840 VENT; FI02 100 %; MECHANICAL RATE 18 resp/min; MODE AC; PEEP 5 CM/H20; SITE LR; TIDAL VOLUME 500 ML; TOTAL RESP RATE 18 resp/min
[2017-10-30 21:23] LABS: ALKALINE PHOSPHATASE 158 IU/L (3-129); CREATININE 1.5 mg/dL (0.6-1.3); GFR ESTIMATE (CALCULATED) 51 mL/min/ (58.99-99999)
[2017-10-30 21:24] LABS: AST (GOT) 146 IU/L (2-34); UREA NITROGEN (BUN) 30 mg/dL (9-23)
[2017-10-30 21:25] LABS: DIRECT BILIRUBIN 0.4 mg/dL (0.0-0.3)
[2017-10-30 21:26] LABS: ALT (GPT) 80 IU/L (3-49); LIPASE 228 U/L (1.0-51.0)
[2017-10-30 21:27] LABS: TROP-I INTERPRETATION NEGATIVE; TROPONIN-I 0.04 ng/mL (0.0-0.30)
[2017-10-30 22:36] LABS: APPEARANCE SL.HAZY ((CLEAR)); BILIRUBIN NEGATIVE; BLOOD MODERATE; COLOR YELLOW ((YELLOW)); GLUCOSE (STRIP) NEGATIVE; KETONES NEGATIVE; LEUKOCYTES TRACE; NITRITE POSITIVE; PROTEIN (STRIP) 30; SPECIFIC GRAVITY 1.018 (1.000-1.030); UROBILINOGEN 0.2 MG/DL (0.2-1.0)
[2017-10-30 22:45] LABS: AMPHETAMINE NEGATIVE (500 ng/mL); BACTERIA 1+ /HPF; BARBITURATES NEGATIVE (200 ng/mL); BENZODIAZEPINES NEGATIVE (150 ng/mL); BUPRENORPHINE NEGATIVE (10 ng/mL); COCAINE NEGATIVE (150 ng/mL); EPITHELIAL CELLS NONE SEEN /HPF; METHADONE PRESUMPTIVE POSITIVE (200 ng/mL); METHAMPHETAMINE NEGATIVE (500 ng/mL); MUCUS NONE SEEN /LPF; OPIATES (MORPHINE) PRESUMPTIVE POSITIVE (100 ng/mL); OXYCODONE NEGATIVE (100 ng/mL); PHENCYCLIDINE NEGATIVE (25 ng/mL); PROPOXYPHENE NEGATIVE (300 ng/mL); RED BLOOD CELLS 0-5 /HPF (0-5); THC CANNABINOIDS PRESUMPTIVE POSITIVE (50 ng/mL); TRICYCLIC ANTIDEPRESSANTS NEGATIVE (300 ng/mL); UCUL ADDED? YES
[2017-10-30 22:49] LABS: THYROTROPIN (TSH) 1.9 MIU/L (0.4-5.5)
[2017-10-31] VITALS (22 sets, daily range): BP systolic 93–145; BP diastolic 7–128
[2017-10-31 01:16] LABS: BASE EXCESS -7.2 mEq/L (-3 to +3); CARBOXY HGB 1.9 % (0-5); METHEMOGLOBIN 1.5 % (0-1.5)
[2017-10-31 01:17] LABS: BICARBONATE 21.1 mEq/L (22-26); DEVICE 840; FI02 100 %; MECHANICAL RATE 18 resp/min; MODE AC; PCO2 54 mm Hg (35-45); PEEP 5 CM/H20; PO2 276 mm Hg (80-100); SITE LR; TIDAL VOLUME 500 ML; TOTAL RESP RATE 18 resp/min
[2017-10-31 05:23] LABS: BASE EXCESS -8.6 mEq/L (-3 to +3); BICARBONATE 18.4 mEq/L (22-26); CARBOXY HGB 1.8 % (0-5); COMMENTS - BLOOD GASES C+; METHEMOGLOBIN 1.6 % (0-1.5); PCO2 43 mm Hg (35-45); PO2 94 mm Hg (80-100); SITE A-LINE
[2017-10-31 05:24] LABS: DEVICE 840; FI02 80 %; MECHANICAL RATE 22 resp/min; MODE AC; PEEP 5 CM/H20; TIDAL VOLUME 500 ML; TOTAL RESP RATE 22 resp/min; pH 7.24 (7.35-7.45)
[2017-10-31 06:33] LABS: ALBUMIN 2.5 G/DL (3.2-4.8); ALKALINE PHOSPHATASE 108 IU/L (3-129); ALT (GPT) 406 IU/L (3-49); AST (GOT) 668 IU/L (2-34); CHLORIDE 108 MEQ/L (99-109); MAGNESIUM 1.6 mg/dl (1.3-2.7); PHOSPHORUS 4.1 mg/dL (2.5-4.9); POTASSIUM 3.5 MEQ/L (3.7-5.4); SODIUM 138 MEQ/L (136-147); TOTAL BILIRUBIN 0.6 MG/DL (0.0-1.0); TOTAL PROTEIN 5.1 G/DL (6.4-8.3); UREA NITROGEN (BUN) 27 mg/dL (9-23)
[2017-10-31 06:34] LABS: CREATININE 0.9 MG/DL (0.6-1.3); GFR ESTIMATE (CALCULATED) > 59 mL/min/ (58.99-99999); GLUCOSE 70 mg/dL (70-99)
[2017-10-31] MEDS ORDERED: ACID CONTROL150 MG PO (10:20)
[2017-10-31] MEDS ORDERED: PROBIOTIC ACID1 EAC3 PO (10:21)
[2017-10-31] MEDS ORDERED: FOLIC ACID0.4 MG PO (10:21)
[2017-10-31] MEDS ORDERED: THIAMINE HCL100 MG PO (10:21)
[2017-10-31] MEDS ORDERED: ONCE DAILY1 EACH PO (10:21)
[2017-10-31] MEDS ORDERED: PULMICORT0.5 MG/21 IH (10:22)
[2017-10-31] MEDS ORDERED: PROVENTIL,2.5 MG/3 M IH (10:22)
[2017-10-31] MEDS ORDERED: MS CONTIN,ORAMO30 MG PO (10:22)
[2017-10-31] MEDS ORDERED: GABAPENTIN300 MG PO (10:23)
[2017-10-31] MEDS ORDERED: PERCOCET 5/31 TABLET PO (10:24)
[2017-10-31] MEDS ORDERED: NEURONTIN400 MG PO (10:24)
[2017-11-01] VITALS (18 sets, daily range): BP systolic 78–115; BP diastolic 48–82
[2017-11-01 04:50] LABS: HEMOGLOBIN 9.2 G/DL (12.5-16.6); MCH 26.4 PG (29.0-34.0); MCHC 31.7 G/DL (30.0-36.0); MCV 83.1 FL (86-99); PLATELET COUNT 214 K/uL (156-360); RBC DIS.WIDTH-CV 14.6 % (11.8-14.6); RBC DIS.WIDTH-SD 43.8 % (39-53); RED BLOOD COUNT 3.49 M/uL (4.00-5.50)
[2017-11-01 05:49] LABS: CHLORIDE 109 MEQ/L (99-109); CREATININE 0.9 MG/DL (0.6-1.3); GFR ESTIMATE (CALCULATED) > 59 mL/min/ (58.99-99999); GLUCOSE 89 mg/dL (70-99); POTASSIUM 3.5 MEQ/L (3.7-5.4); SODIUM 138 MEQ/L (136-147); UREA NITROGEN (BUN) 16 mg/dL (9-23); VANCOMYCIN, TROUGH 19.9 MCG/ML (10-20)
[2017-11-01 17:08] LABS: C DIFF TOXIN POSITIVE (NEGATIVE)
[2017-11-02] VITALS (8 sets, daily range): BP systolic 91–116; BP diastolic 64–68
[2017-11-02 09:22] LABS: HEMATOCRIT 27.7 % (38.0-50.0); HEMOGLOBIN 8.5 G/DL (12.5-16.6); MCH 26.2 PG (29.0-34.0); MCHC 30.7 G/DL (30.0-36.0); MCV 85.2 FL (86-99); PLATELET COUNT 167 K/uL (156-360); RBC DIS.WIDTH-CV 14.6 % (11.8-14.6); RBC DIS.WIDTH-SD 45.3 % (39-53); RED BLOOD COUNT 3.25 M/uL (4.00-5.50); WHITE BLOOD COUNT 6.9 K/uL (4.1-10.2)
[2017-11-02 09:45] LABS: CHLORIDE 107 MEQ/L (99-109); CREATININE 0.8 MG/DL (0.6-1.3); GFR ESTIMATE (CALCULATED) > 59 mL/min/ (58.99-99999); GLUCOSE 83 mg/dL (70-99); POTASSIUM 3.3 MEQ/L (3.7-5.4); SODIUM 139 MEQ/L (136-147); UREA NITROGEN (BUN) 12 mg/dL (9-23)
[2017-11-03 04:00] VITALS: BP 112/68
[2017-11-03 07:15] VITALS: BP 108/75
[2017-11-03 08:48] LABS: HEMOGLOBIN 9.7 G/DL (12.5-16.6); MCH 26.2 PG (29.0-34.0); MCHC 30.3 G/DL (30.0-36.0); MCV 86.5 FL (86-99); PLATELET COUNT 181 K/uL (156-360); RBC DIS.WIDTH-CV 14.8 % (11.8-14.6); RBC DIS.WIDTH-SD 46.5 % (39-53); WHITE BLOOD COUNT 6.4 K/uL (4.1-10.2)
[2017-11-03 15:00] VITALS: BP 118/77
[2017-11-03] MEDS ORDERED: PERCOCET 5/31 TABLET PO (15:41)
[2017-11-03] MEDS ORDERED: VANCOMYCIN HCL125 MG PO (15:41)
[2017-11-03] MEDS ORDERED: MS CONTIN,ORAMO30 MG PO (15:41)
[2017-11-03] MEDS ORDERED: BACTRIM,SEPT1 TABLET PO (15:41)
== END 2017-11-03 19:45 | disposition home health service (06) | DRG 871 ==
LOC: EME 20:19 → 4WEST 23:28 → EDOF 23:28 → ENRESERV 23:29 → EDOF 10-31 00:45 → 4WEST 10-31 01:37 → ENRESERV 11-01 16:36 → 4EAST 11-02 02:04
PROVIDERS: Emergency Medicine; Family Medicine; Internal Medicine Critical Care Medicine; Specialist
DX: A41.9 Sepsis, unspecified organism (principal); J69.0 Pneumonitis due to inhalation of food and vomit; J96.22 Acute and chronic respiratory failure with hypercapnia; T40.3X1A Poisoning by methadone, accidental (unintentional), initial encounter; J96.21 Acute and chronic respiratory failure with hypoxia; N17.9 Acute kidney failure, unspecified; N39.0 Urinary tract infection, site not specified; J44.1 Chronic obstructive pulmonary disease with (acute) exacerbation; A04.72 Enterocolitis due to Clostridium difficile, not specified as recurrent; R65.21 Severe sepsis with septic shock; J44.0 Chronic obstructive pulmonary disease with (acute) lower respiratory infection; G47.33 Obstructive sleep apnea (adult) (pediatric); I10 Essential (primary) hypertension; E87.2 Acidosis; E78.5 Hyperlipidemia, unspecified; F12.10 Cannabis abuse, uncomplicated; F10.10 Alcohol abuse, uncomplicated; I87.2 Venous insufficiency (chronic) (peripheral); G89.29 Other chronic pain; Z86.718 Personal history of other venous thrombosis and embolism; K21.9 Gastro-esophageal reflux disease without esophagitis; B96.1 Klebsiella pneumoniae [K. pneumoniae] as the cause of diseases classified elsewhere; Z68.29 Body mass index [BMI] 29.0-29.9, adult; Z87.01 Personal history of pneumonia (recurrent); Z87.891 Personal history of nicotine dependence; Z99.81 Dependence on supplemental oxygen; Z16.24 Resistance to multiple antibiotics; Z86.711 Personal history of pulmonary embolism; Z86.73 Personal history of transient ischemic attack (TIA), and cerebral infarction without residual deficits
CPT/HCPCS: 36600; 36620; 70450; 71045; 71260; 72125; 74177; 80047; 80048; 80053; 80202; 81003; 82140; 82248; 82803; 82948; 83605; 83690; 83735; 84100; 84443; 84484; 84999; 85025; 85027; 85610; 85730; 87040; 87070; 87077; 87086; 87186; 87205; 87493; 87641; 87801; 93005; 94002; 94003; 94799; 97530 GO; 97530 GP; 99281; 99285; C1751; G0480; J0692; J1644; J1956; J2250; J2270; J2704; J3010; J3370; J3480; J7120; S0028; S0030; S0073

== ENCOUNTER 2018-02-06 22:28 | Inpatient (IN) | payer OTHER ==
[~2018-02-06] VITALS: Ht 172.7 cm; Wt 92.9 kg
[~2018-02-06 22:28] MED LIST changes: +ACID CONTROL150 MG PO; +BACTRIM,SEPT1 TABLET PO; +GABAPENTIN300 MG PO; +MS CONTIN,ORAMO30 MG PO; +NEURONTIN400 MG PO; +ONCE DAILY1 EACH PO; +PERCOCET 5/31 TABLET PO; +PROBIOTIC ACID1 EAC3 PO; +PROVENTIL,2.5 MG/3 M IH; +PULMICORT0.5 MG/21 IH; +VANCOMYCIN HCL125 MG PO
[2018-02-06 23:07] LABS: BASOPHIL (%) 0.3 % (0-1); EOSINOPHIL (%) 0.3 % (0-5); HEMATOCRIT 38.1 % (38.0-50.0); HEMOGLOBIN 12.1 G/DL (12.5-16.6); IMMATURE GRANULOCYTE (%) 0.4 % (0.0-0.7); LYMPHOCYTE (%) 9.1 % (15-42); LYMPHOCYTE COUNT 0.6 K/uL (1.0-2.8); MCH 26.4 PG (29.0-34.0); MCHC 31.8 G/DL (30.0-36.0); MONOCYTE (%) 3.2 % (3-12); MONOCYTE COUNT 0.2 K/uL (0-0.8); NEUTROPHIL (%) 86.7 % (45-76); NEUTROPHIL COUNT 5.9 K/uL (1.8-6.4); PLATELET COUNT 218 K/uL (156-360); RBC DIS.WIDTH-CV 15.7 % (11.8-14.6); RBC DIS.WIDTH-SD 47.2 % (39-53); RED BLOOD COUNT 4.59 M/uL (4.00-5.50); WHITE BLOOD COUNT 6.8 K/uL (4.1-10.2)
[2018-02-06 23:23] LABS: CHLORIDE 101 mEq/L (99-109); POTASSIUM 3.7 mEq/L (3.7-5.4); SODIUM 139 mEq/L (136-147)
[2018-02-06 23:25] LABS: GLUCOSE 136 mg/dL (70-99); TOTAL PROTEIN 7.8 g/dL (6.4-8.3)
[2018-02-06 23:27] LABS: TOTAL BILIRUBIN 0.3 mg/dL (0.0-1.0)
[2018-02-06 23:28] LABS: ALKALINE PHOSPHATASE 150 IU/L (3-129)
[2018-02-06 23:29] LABS: GFR ESTIMATE (CALCULATED) > 59 mL/min/ (58.99-99999)
[2018-02-06 23:30] LABS: AST (GOT) 10 IU/L (2-34); SERUM ETHYL ALCOHOL < 10 mg/dL; UREA NITROGEN (BUN) 7 mg/dL (9-23)
[2018-02-06 23:32] LABS: ALT (GPT) 5 IU/L (3-49); CREATINE KINASE 65 IU/L (1-294); LIPASE 10 U/L (1.0-51.0); TOTAL CK 65 IU/L (1-294)
[2018-02-06 23:38] LABS: TROP-I INTERPRETATION NEGATIVE; TROPONIN-I < 0.01 ng/mL (0.0-0.30)
[2018-02-06 23:39] LABS: CK-MB 1.9 ng/mL (0.0-4.9); CKMB RELATIVE INDEX 2.9 (0.0-3.9)
[2018-02-07 00:46] LABS: APPEARANCE CLEAR ((CLEAR)); BILIRUBIN NEGATIVE; BLOOD NEGATIVE; COLOR YELLOW ((YELLOW)); GLUCOSE (STRIP) NEGATIVE; KETONES NEGATIVE; LEUKOCYTES LARGE; NITRITE NEGATIVE; PROTEIN (STRIP) 30; SPECIFIC GRAVITY 1.016 (1.000-1.030); UROBILINOGEN 0.2 MG/DL (0.2-1.0)
[2018-02-07] MEDS ORDERED: METHADONE10 MG PO (01:00)
[2018-02-07 01:03] LABS: BACTERIA 2+ /HPF; EPITHELIAL CELLS NONE SEEN /HPF; MUCUS TRACE /LPF; UCUL ADDED? YES; WHITE BLOOD CELLS TNTC /HPF (0-5)
[2018-02-07 01:31] LABS: AMPHETAMINE NEGATIVE (500 ng/mL); BARBITURATES NEGATIVE (200 ng/mL); BENZODIAZEPINES NEGATIVE (150 ng/mL); BUPRENORPHINE NEGATIVE (10 ng/mL); COCAINE NEGATIVE (150 ng/mL); METHADONE PRESUMPTIVE POSITIVE (200 ng/mL); METHAMPHETAMINE NEGATIVE (500 ng/mL); OPIATES (MORPHINE) NEGATIVE (100 ng/mL); OXYCODONE NEGATIVE (100 ng/mL); PHENCYCLIDINE NEGATIVE (25 ng/mL); PROPOXYPHENE NEGATIVE (300 ng/mL); THC CANNABINOIDS PRESUMPTIVE POSITIVE (50 ng/mL); TRICYCLIC ANTIDEPRESSANTS NEGATIVE (300 ng/mL)
[2018-02-07 06:29] LABS: MAGNESIUM 2.1 mg/dL (1.3-2.7)
[2018-02-07 08:38] VITALS: BP 128/82
[2018-02-07 15:25] VITALS: BP 147/80
[2018-02-07 20:12] VITALS: BP 129/63
[2018-02-07 23:53] VITALS: BP 133/73
[2018-02-08 04:19] VITALS: BP 110/74
[2018-02-08 06:06] LABS: BASOPHIL (%) 0.5 % (0-1); EOSINOPHIL (%) 2.2 % (0-5); EOSINOPHIL COUNT 0.1 K/uL (0-0.3); HEMOGLOBIN 11.1 G/DL (12.5-16.6); IMMATURE GRANULOCYTE (%) 0.3 % (0.0-0.7); LYMPHOCYTE (%) 26.5 % (15-42); LYMPHOCYTE COUNT 1.6 K/uL (1.0-2.8); MCH 26.1 PG (29.0-34.0); MCHC 31.7 G/DL (30.0-36.0); MCV 82.4 FL (86-99); MONOCYTE (%) 11.3 % (3-12); MONOCYTE COUNT 0.7 K/uL (0-0.8); NEUTROPHIL (%) 59.2 % (45-76); NEUTROPHIL COUNT 3.5 K/uL (1.8-6.4); NRBC (%) 0.3 /100 WBC (0-0); PLATELET COUNT 196 K/uL (156-360); RBC DIS.WIDTH-CV 15.7 % (11.8-14.6); RBC DIS.WIDTH-SD 47.6 % (39-53); RED BLOOD COUNT 4.25 M/uL (4.00-5.50); WHITE BLOOD COUNT 5.8 K/uL (4.1-10.2)
[2018-02-08 06:11] LABS: CHLORIDE 106 MEQ/L (99-109); CREATININE 0.8 MG/DL (0.6-1.3); GFR ESTIMATE (CALCULATED) > 59 mL/min/ (58.99-99999); POTASSIUM 3.8 MEQ/L (3.7-5.4); SODIUM 136 MEQ/L (136-147); UREA NITROGEN (BUN) 8 mg/dL (9-23)
[2018-02-08 06:16] LABS: GLUCOSE 86 mg/dL (70-99)
[2018-02-08 08:09] VITALS: BP 125/69
[2018-02-08 11:41] VITALS: BP 126/87
[2018-02-08 15:00] VITALS: BP 129/75
[2018-02-08 20:52] VITALS: BP 117/64
[2018-02-08 23:36] VITALS: BP 132/76
[2018-02-09 05:21] VITALS: BP 125/75
[2018-02-09 05:34] LABS: HEMATOCRIT 37.1 % (38.0-50.0); HEMOGLOBIN 11.7 G/DL (12.5-16.6); MCH 25.8 PG (29.0-34.0); MCHC 31.5 G/DL (30.0-36.0); MCV 81.7 FL (86-99); PLATELET COUNT 203 K/uL (156-360); RBC DIS.WIDTH-CV 15.8 % (11.8-14.6); RBC DIS.WIDTH-SD 46.6 % (39-53); RED BLOOD COUNT 4.54 M/uL (4.00-5.50); WHITE BLOOD COUNT 5.2 K/uL (4.1-10.2)
[2018-02-09 06:15] LABS: CHLORIDE 106 MEQ/L (99-109); CREATININE 0.9 MG/DL (0.6-1.3); GFR ESTIMATE (CALCULATED) > 59 mL/min/ (58.99-99999); GLUCOSE 89 mg/dL (70-99); POTASSIUM 4.2 MEQ/L (3.7-5.4); SODIUM 137 MEQ/L (136-147); UREA NITROGEN (BUN) 9 mg/dL (9-23)
[2018-02-09 07:57] VITALS: BP 118/71
[2018-02-09 11:49] VITALS: BP 120/70
[2018-02-09 15:51] VITALS: BP 108/64
[2018-02-09 19:38] VITALS: BP 110/57
[2018-02-09 23:29] VITALS: BP 92/50
[2018-02-10 03:35] VITALS: BP 102/55
[2018-02-10 05:27] LABS: HEMATOCRIT 35.5 % (38.0-50.0); HEMOGLOBIN 11.1 G/DL (12.5-16.6); MCH 25.5 PG (29.0-34.0); MCHC 31.3 G/DL (30.0-36.0); MCV 81.6 FL (86-99); PLATELET COUNT 213 K/uL (156-360); RBC DIS.WIDTH-CV 15.9 % (11.8-14.6); RBC DIS.WIDTH-SD 47.8 % (39-53); RED BLOOD COUNT 4.35 M/uL (4.00-5.50); WHITE BLOOD COUNT 5.8 K/uL (4.1-10.2)
[2018-02-10 05:58] LABS: CHLORIDE 105 MEQ/L (99-109); GFR ESTIMATE (CALCULATED) > 59 mL/min/ (58.99-99999); GLUCOSE 85 mg/dL (70-99); POTASSIUM 4.4 MEQ/L (3.7-5.4); SODIUM 137 MEQ/L (136-147); UREA NITROGEN (BUN) 14 mg/dL (9-23)
[2018-02-10 07:31] VITALS: BP 103/64
[2018-02-10 16:39] VITALS: BP 116/63
[2018-02-10 19:15] VITALS: BP 102/62
[2018-02-11] VITALS (7 sets, daily range): BP systolic 93–134; BP diastolic 52–66
[2018-02-12 04:10] VITALS: BP 125/72
[2018-02-12 06:34] LABS: HEMATOCRIT 36.6 % (38.0-50.0); HEMOGLOBIN 11.4 G/DL (12.5-16.6); MCH 25.7 PG (29.0-34.0); MCHC 31.1 G/DL (30.0-36.0); MCV 82.4 FL (86-99); PLATELET COUNT 203 K/uL (156-360); RBC DIS.WIDTH-CV 15.8 % (11.8-14.6); RBC DIS.WIDTH-SD 47.9 % (39-53); RED BLOOD COUNT 4.44 M/uL (4.00-5.50); WHITE BLOOD COUNT 5.9 K/uL (4.1-10.2)
[2018-02-12 07:41] VITALS: BP 98/60
[2018-02-12 11:47] VITALS: BP 100/51
[2018-02-12 15:29] VITALS: BP 105/55
[2018-02-12 20:12] VITALS: BP 108/58
[2018-02-13 00:06] VITALS: BP 116/53
[2018-02-13 03:50] VITALS: BP 124/58
[2018-02-13 08:22] VITALS: BP 109/64
[2018-02-13 16:02] VITALS: BP 109/67
[2018-02-13 20:25] VITALS: BP 118/57
[2018-02-13 23:29] VITALS: BP 125/62
[2018-02-14 06:42] LABS: HEMATOCRIT 35.4 % (38.0-50.0); MCH 25.8 PG (29.0-34.0); MCHC 31.1 G/DL (30.0-36.0); MCV 82.9 FL (86-99); PLATELET COUNT 227 K/uL (156-360); RBC DIS.WIDTH-CV 15.8 % (11.8-14.6); RED BLOOD COUNT 4.27 M/uL (4.00-5.50); WHITE BLOOD COUNT 5.8 K/uL (4.1-10.2)
[2018-02-14 07:46] VITALS: BP 122/68
[2018-02-14 09:08] LABS: CHLORIDE 103 MEQ/L (99-109); CREATINE KINASE 25 IU/L (1-294); GFR ESTIMATE (CALCULATED) > 59 mL/min/ (58.99-99999); GLUCOSE 118 mg/dL (70-99); POTASSIUM 4.3 MEQ/L (3.7-5.4); SODIUM 135 MEQ/L (136-147)
[2018-02-14 09:15] LABS: UREA NITROGEN (BUN) 27 mg/dL (9-23)
[2018-02-14 15:59] VITALS: BP 106/56
[2018-02-14 19:29] VITALS: BP 110/62
[2018-02-14 23:32] VITALS: BP 118/66
[2018-02-15 04:46] VITALS: BP 110/68
[2018-02-15 07:40] VITALS: BP 107/62
[2018-02-15 08:39] LABS: MCH 25.6 PG (29.0-34.0); MCHC 30.6 G/DL (30.0-36.0); MCV 83.9 FL (86-99); PLATELET COUNT 234 K/uL (156-360); RBC DIS.WIDTH-CV 15.7 % (11.8-14.6); RBC DIS.WIDTH-SD 48.2 % (39-53); RED BLOOD COUNT 4.29 M/uL (4.00-5.50); WHITE BLOOD COUNT 5.1 K/uL (4.1-10.2)
[2018-02-15 09:06] LABS: CHLORIDE 104 MEQ/L (99-109); GFR ESTIMATE (CALCULATED) > 59 mL/min/ (58.99-99999); POTASSIUM 5.1 MEQ/L (3.7-5.4); SODIUM 139 MEQ/L (136-147); UREA NITROGEN (BUN) 23 mg/dL (9-23)
[2018-02-15 09:07] LABS: GLUCOSE 85 mg/dL (70-99)
[2018-02-15 15:41] VITALS: BP 122/61
[2018-02-15 23:50] VITALS: BP 121/68
[2018-02-16 05:54] LABS: HEMATOCRIT 34.1 % (38.0-50.0); HEMOGLOBIN 10.7 G/DL (12.5-16.6); MCHC 31.4 G/DL (30.0-36.0); MCV 82.8 FL (86-99); PLATELET COUNT 231 K/uL (156-360); RBC DIS.WIDTH-CV 15.4 % (11.8-14.6); RBC DIS.WIDTH-SD 46.9 % (39-53); RED BLOOD COUNT 4.12 M/uL (4.00-5.50)
[2018-02-16 06:19] LABS: CHLORIDE 102 MEQ/L (99-109); GFR ESTIMATE (CALCULATED) > 59 mL/min/ (58.99-99999); GLUCOSE 89 mg/dL (70-99); POTASSIUM 4.6 MEQ/L (3.7-5.4); SODIUM 137 MEQ/L (136-147); UREA NITROGEN (BUN) 23 mg/dL (9-23)
[2018-02-16 08:10] VITALS: BP 128/64
[2018-02-16 15:21] VITALS: BP 122/76
[2018-02-16] MEDS ORDERED: LEVAQUIN750 MG PO (16:38)
[2018-02-16] MEDS ORDERED: MIDODRINE HCL5 MG PO (16:38)
== END 2018-02-16 18:00 | DRG 690 ==
LOC: EME → EDBD 22:28 → 3EAST 02-07 04:58 → EDOF 02-07 04:58 → ENRESERV 02-07 04:59 → 3EAST 02-07 07:40
PROVIDERS: Emergency Medicine; Hospitalist; Internal Medicine; Physician Assistant
DX: N39.0 Urinary tract infection, site not specified (principal); J96.11 Chronic respiratory failure with hypoxia; F05 Delirium due to known physiological condition; F11.20 Opioid dependence, uncomplicated; E87.2 Acidosis; B96.1 Klebsiella pneumoniae [K. pneumoniae] as the cause of diseases classified elsewhere; G89.29 Other chronic pain; I95.9 Hypotension, unspecified; Z16.24 Resistance to multiple antibiotics; K52.9 Noninfective gastroenteritis and colitis, unspecified; G47.33 Obstructive sleep apnea (adult) (pediatric); G62.9 Polyneuropathy, unspecified; K21.9 Gastro-esophageal reflux disease without esophagitis; E78.5 Hyperlipidemia, unspecified; I10 Essential (primary) hypertension; I87.8 Other specified disorders of veins; K43.9 Ventral hernia without obstruction or gangrene; T42.6X5A Adverse effect of other antiepileptic and sedative-hypnotic drugs, initial encounter; D64.9 Anemia, unspecified; F10.20 Alcohol dependence, uncomplicated; R15.9 Full incontinence of feces; R45.1 Restlessness and agitation; Y90.0 Blood alcohol level of less than 20 mg/100 ml; Z99.81 Dependence on supplemental oxygen; Z86.711 Personal history of pulmonary embolism; Z86.718 Personal history of other venous thrombosis and embolism; Z87.891 Personal history of nicotine dependence; Z87.01 Personal history of pneumonia (recurrent)
CPT/HCPCS: 70450; 71045; 74018; 74177; 80048; 80053; 80170; 81003; 82550; 82553; 82565; 83605; 83630; 83690; 83735; 84484; 84999; 85025; 85027; 87040; 87070; 87077; 87086; 87177; 87186; 87205; 87493; 87641; 93005; 94640; 94640 76; 94799; 95819; 97530 GP; 99202; 99281; 99285; A6214; G0480; J0696; J1580; J1630; J1650; J1956; J2060; J3411; J7030; J7050

== ENCOUNTER 2018-05-02 08:12 | Emergency (ER) | payer OTHER ==
[~2018-05-02] VITALS: Ht 172.7 cm; Wt 78.8 kg
[~2018-05-02 08:12] MED LIST changes: +MIDODRINE HCL5 MG PO
[2018-05-02 09:05] LABS: HEMATOCRIT 44.9 % (38.0-50.0); HEMOGLOBIN 15.1 G/DL (12.5-16.6); MCH 29.1 PG (29.0-34.0); MCHC 33.6 G/DL (30.0-36.0); MCV 86.5 FL (86-99); PLATELET COUNT 131 K/uL (156-360); RBC DIS.WIDTH-CV 19.3 % (11.8-14.6); RBC DIS.WIDTH-SD 59.6 % (39-53); RED BLOOD COUNT 5.19 M/uL (4.00-5.50); WHITE BLOOD COUNT 7.3 K/uL (4.1-10.2)
[2018-05-02 09:16] LABS: ALBUMIN 3.2 g/dL (3.2-4.8); CHLORIDE 95 mEq/L (99-109); POTASSIUM 4.8 mEq/L (3.7-5.4); SODIUM 134 mEq/L (136-147)
[2018-05-02 09:19] LABS: GLUCOSE 84 mg/dL (70-99); TOTAL PROTEIN 8.5 g/dL (6.4-8.3)
[2018-05-02 09:20] LABS: TOTAL BILIRUBIN 0.4 mg/dL (0.0-1.0)
[2018-05-02 09:22] LABS: ALKALINE PHOSPHATASE 218 IU/L (3-129); CREATININE 0.7 mg/dL (0.6-1.3); GFR ESTIMATE (CALCULATED) > 59 mL/min/ (58.99-99999)
[2018-05-02 09:23] LABS: UREA NITROGEN (BUN) 6 mg/dL (9-23)
[2018-05-02 09:24] LABS: AST (GOT) 113 IU/L (2-34)
[2018-05-02 09:25] LABS: ALT (GPT) 69 IU/L (3-49)
[2018-05-02 11:47] LABS: APPEARANCE CLEAR ((CLEAR)); BILIRUBIN NEGATIVE; BLOOD SMALL; COLOR YELLOW ((YELLOW)); GLUCOSE (STRIP) NEGATIVE; KETONES 5; LEUKOCYTES NEGATIVE; NITRITE NEGATIVE; PROTEIN (STRIP) NEGATIVE; SPECIFIC GRAVITY 1.011 (1.000-1.030); UROBILINOGEN 0.2 MG/DL (0.2-1.0)
[2018-05-02 11:57] LABS: BACTERIA RARE /HPF; CALCIUM OXALATE CRYSTALS 2+ /HPF; EPITHELIAL CELLS NONE SEEN /HPF; HYALINE CASTS 0-5 /LPF; MUCUS TRACE /LPF; RED BLOOD CELLS 0-5 /HPF (0-5); UCUL ADDED? NO; WHITE BLOOD CELLS 0-5 /HPF (0-5)
[2018-05-02] MEDS ORDERED: ZOVIRAX800 M1 PO (13:38)
[2018-05-02 16:06] VITALS: BP 156/93
== END 2018-05-02 16:08 | disposition home or self-care (01) ==
LOC: EME 08:12
PROVIDERS: Nurse Practitioner Family
DX: B02.9 Zoster without complications (principal); S91.102A Unspecified open wound of left great toe without damage to nail, initial encounter; S91.101A Unspecified open wound of right great toe without damage to nail, initial encounter; K76.9 Liver disease, unspecified; F10.10 Alcohol abuse, uncomplicated; J44.9 Chronic obstructive pulmonary disease, unspecified; I10 Essential (primary) hypertension; G62.9 Polyneuropathy, unspecified; G89.29 Other chronic pain; K21.9 Gastro-esophageal reflux disease without esophagitis; E78.5 Hyperlipidemia, unspecified; Z86.73 Personal history of transient ischemic attack (TIA), and cerebral infarction without residual deficits; Z86.718 Personal history of other venous thrombosis and embolism; Z79.891 Long term (current) use of opiate analgesic; Z88.0 Allergy status to penicillin; Z87.891 Personal history of nicotine dependence; Z88.8 Allergy status to other drugs, medicaments and biological substances
CPT/HCPCS: 71046; 80053; 81003; 85027; 87070; 87075; 87205; 87254; 94640; 99281; 99284; J2270

== ENCOUNTER 2018-05-07 21:23 | Inpatient (IN) | payer OTHER ==
[~2018-05-07] VITALS: Ht 172.7 cm; Wt 80.2 kg
[~2018-05-07 21:23] MED LIST changes: +ZOVIRAX800 M1 PO
[2018-05-07 22:39] LABS: APPEARANCE CLEAR ((CLEAR)); BILIRUBIN NEGATIVE; BLOOD SMALL; COLOR STRAW ((YELLOW)); GLUCOSE (STRIP) NEGATIVE; KETONES NEGATIVE; LEUKOCYTES TRACE; NITRITE NEGATIVE; PROTEIN (STRIP) NEGATIVE; SPECIFIC GRAVITY 1.004 (1.000-1.030); UROBILINOGEN 0.2 MG/DL (0.2-1.0)
[2018-05-07 22:42] LABS: BACTERIA NONE SEEN /HPF; EPITHELIAL CELLS NONE SEEN /HPF; MUCUS NONE SEEN /LPF; RED BLOOD CELLS 0-5 /HPF (0-5); UCUL ADDED? NO; WHITE BLOOD CELLS 0-5 /HPF (0-5)
[2018-05-07 23:06] LABS: HEMATOCRIT 45.4 % (38.0-50.0); HEMOGLOBIN 15.7 G/DL (12.5-16.6); MCH 29.5 PG (29.0-34.0); MCHC 34.6 G/DL (30.0-36.0); MCV 85.2 FL (86-99); PLATELET COUNT 121 K/uL (156-360); RBC DIS.WIDTH-CV 18.1 % (11.8-14.6); RBC DIS.WIDTH-SD 55.7 % (39-53); RED BLOOD COUNT 5.33 M/uL (4.00-5.50); WHITE BLOOD COUNT 6.3 K/uL (4.1-10.2)
[2018-05-07 23:09] LABS: ALBUMIN 3.3 g/dL (3.2-4.8); CHLORIDE 95 mEq/L (99-109); POTASSIUM 4.1 mEq/L (3.7-5.4); SODIUM 132 mEq/L (136-147)
[2018-05-07 23:12] LABS: GLUCOSE 99 mg/dL (70-99); TOTAL PROTEIN 8.2 g/dL (6.4-8.3)
[2018-05-07 23:14] LABS: SERUM ETHYL ALCOHOL 326 mg/dL
[2018-05-07 23:15] LABS: ALKALINE PHOSPHATASE 199 IU/L (3-129); CREATININE 0.6 mg/dL (0.6-1.3); GFR ESTIMATE (CALCULATED) > 59 mL/min/ (58.99-99999)
[2018-05-07 23:16] LABS: UREA NITROGEN (BUN) 5 mg/dL (9-23)
[2018-05-07 23:17] LABS: AST (GOT) 98 IU/L (2-34)
[2018-05-07 23:18] LABS: ALT (GPT) 55 IU/L (3-49); CREATINE KINASE 123 IU/L (1-294)
[2018-05-07 23:24] LABS: TOTAL BILIRUBIN 0.6 mg/dL (0.0-1.0)
[2018-05-07 23:25] LABS: TROP-I INTERPRETATION NEGATIVE; TROPONIN-I < 0.01 ng/mL (0.0-0.30)
[2018-05-08 05:13] LABS: BASOPHIL (%) 1.1 % (0-1); BASOPHIL COUNT 0.1 K/uL (0-0.1); EOSINOPHIL (%) 0.7 % (0-5); HEMATOCRIT 40.2 % (38.0-50.0); HEMOGLOBIN 13.8 G/DL (12.5-16.6); IMMATURE GRANULOCYTE (%) 0.4 % (0.0-0.7); LYMPHOCYTE (%) 17.3 % (15-42); LYMPHOCYTE COUNT 0.8 K/uL (1.0-2.8); MCH 29.9 PG (29.0-34.0); MCHC 34.3 G/DL (30.0-36.0); MONOCYTE (%) 12.5 % (3-12); MONOCYTE COUNT 0.6 K/uL (0-0.8); NEUTROPHIL COUNT 3.1 K/uL (1.8-6.4); PLATELET COUNT 96 K/uL (156-360); RBC DIS.WIDTH-CV 18.2 % (11.8-14.6); RBC DIS.WIDTH-SD 57.9 % (39-53); RED BLOOD COUNT 4.62 M/uL (4.00-5.50); WHITE BLOOD COUNT 4.6 K/uL (4.1-10.2)
[2018-05-08 05:23] LABS: ALBUMIN 2.9 g/dL (3.2-4.8); CHLORIDE 101 mEq/L (99-109); SODIUM 137 mEq/L (136-147)
[2018-05-08 05:24] LABS: MAGNESIUM 1.8 mg/dL (1.3-2.7)
[2018-05-08 05:26] LABS: GLUCOSE 82 mg/dL (70-99)
[2018-05-08 05:28] LABS: TOTAL BILIRUBIN 0.6 mg/dL (0.0-1.0)
[2018-05-08 05:29] LABS: ALKALINE PHOSPHATASE 174 IU/L (3-129)
[2018-05-08 05:30] LABS: CREATININE 0.7 mg/dL (0.6-1.3); GFR ESTIMATE (CALCULATED) > 59 mL/min/ (58.99-99999)
[2018-05-08 05:31] LABS: AST (GOT) 83 IU/L (2-34); UREA NITROGEN (BUN) 4 mg/dL (9-23)
[2018-05-08 05:32] LABS: ALT (GPT) 46 IU/L (3-49)
[2018-05-08 05:34] LABS: TOTAL PROTEIN 6.8 g/dL (6.4-8.3)
[2018-05-08 05:52] VITALS: BP 127/77
[2018-05-08 06:40] VITALS: BP 119/78
[2018-05-08 11:40] VITALS: BP 122/66
[2018-05-08 15:45] VITALS: BP 136/48
[2018-05-08 19:16] VITALS: BP 131/83
[2018-05-08 22:56] VITALS: BP 131/77
[2018-05-09 03:15] VITALS: BP 137/68
[2018-05-09 07:07] VITALS: BP 139/81
[2018-05-09 11:07] LABS: HIV-1/2 AB/AG COMBO Nonreactive
[2018-05-09 11:23] VITALS: BP 139/82
[2018-05-09 15:55] VITALS: BP 129/75
[2018-05-09 19:51] VITALS: BP 115/71
[2018-05-10 00:18] VITALS: BP 122/86
[2018-05-10 04:35] VITALS: BP 122/81
[2018-05-10 06:53] VITALS: BP 136/80
[2018-05-10 12:35] VITALS: BP 125/72
[2018-05-10] MEDS ORDERED: METHADONE5 MG PO (16:24)
[2018-05-10 18:42] VITALS: BP 120/73
[2018-05-10 22:31] VITALS: BP 126/74
[2018-05-11 03:06] VITALS: BP 136/81
[2018-05-11 07:05] VITALS: BP 158/88
[2018-05-11 10:40] VITALS: BP 133/76
[2018-05-11 15:25] VITALS: BP 146/85
[2018-05-11 23:10] VITALS: BP 153/81
[2018-05-12 06:47] VITALS: BP 144/78
[2018-05-12] MEDS ORDERED: VALACYCLOVIR500 MG PO (12:55)
[2018-05-12] MEDS ORDERED: CLOTRIMAZOLE AF15 G2 TP (12:56)
[2018-05-12] MEDS ORDERED: METHADONE5 MG PO (12:56)
[2018-05-12 16:32] VITALS: BP 139/86
== END 2018-05-12 17:01 | DRG 603 ==
LOC: EME → EDBD 21:23 → 5EAST 05-08 04:09 → EDOF 05-08 04:09 → ENRESERV 05-08 04:12 → 5EAST 05-08 05:24
PROVIDERS: Emergency Medicine; Internal Medicine
DX: L03.115 Cellulitis of right lower limb (principal); B35.6 Tinea cruris; B00.9 Herpesviral infection, unspecified; I87.2 Venous insufficiency (chronic) (peripheral); L97.819 Non-pressure chronic ulcer of other part of right lower leg with unspecified severity; L98.499 Non-pressure chronic ulcer of skin of other sites with unspecified severity; F10.239 Alcohol dependence with withdrawal, unspecified; Y90.8 Blood alcohol level of 240 mg/100 ml or more; E87.2 Acidosis; R56.9 Unspecified convulsions; E86.0 Dehydration; R74.8 Abnormal levels of other serum enzymes; G47.33 Obstructive sleep apnea (adult) (pediatric); G62.9 Polyneuropathy, unspecified; J44.9 Chronic obstructive pulmonary disease, unspecified; K21.9 Gastro-esophageal reflux disease without esophagitis; I10 Essential (primary) hypertension; I73.9 Peripheral vascular disease, unspecified; E78.5 Hyperlipidemia, unspecified; F17.200 Nicotine dependence, unspecified, uncomplicated; Z86.73 Personal history of transient ischemic attack (TIA), and cerebral infarction without residual deficits; Z86.718 Personal history of other venous thrombosis and embolism; Z86.711 Personal history of pulmonary embolism; Z99.81 Dependence on supplemental oxygen; Z95.828 Presence of other vascular implants and grafts; Z91.040 Latex allergy status; Z88.0 Allergy status to penicillin
CPT/HCPCS: 70450; 71045; 74177; 80053; 80202; 81003; 82550; 83605; 83735; 84484; 85025; 85027; 87040; 87070; 87075; 87205; 87254; 87389; 93005; 94640; 94760; 94799; 99281; 99284; G0480; J0690; J1644; J1885; J2060; J2405; J3370; J3411; J7030; J7050